=== PATIENT | female | born 1980 | race Caucasian/White ===

== ENCOUNTER 2021-11-18 16:55 | Outpatient (REF) | payer OTHER, SELFPAY ==
--- NOTE | ~2021-11-18 | XR_ITS ---
EXAMINATION: XR CHEST CLINICAL INFORMATION: Wheezing COMPARISON: None TECHNIQUE: 2 views of the chest were obtained. FINDINGS: No significant abnormality is noted involving the heart, lungs, mediastinum, bony thorax or soft tissues. XR/XR chest 2V IMPRESSION: Unremarkable examination.
== END 2021-11-18 16:56 | disposition home or self-care (01) ==
LOC: HO.XRAY 16:55
PROVIDERS: PCP Internal Medicine; Visit Provider Nurse Practitioner Family
DX: R06.2 Wheezing (principal)
CPT/HCPCS: 71046

== ENCOUNTER 2022-02-16 09:01 | Emergency (ER) | payer OTHER, SELFPAY ==
--- NOTE | ~2022-02-16 | XR_ITS ---
EXAMINATION: XR CHEST CLINICAL INFORMATION: Cough. COMPARISON: 11/18/2021 chest radiographs. TECHNIQUE: 2 views of the chest were obtained. FINDINGS: No significant abnormality is noted involving the heart, lungs, mediastinum, bony thorax or soft tissues. XR/XR chest 2V IMPRESSION: No acute cardiopulmonary process.
[2022-02-16 09:07] VITALS: BP 137/72; PULSE 88; RESP 18; TEMP 36.5; O2SAT 98; BMI 42.0
--- NOTE | 2022-02-16 09:11 | ED.URI ---
HPI - URI/Sore Throat General Chief Complaint: Upper Respiratory Symptoms Stated Complaint: diff breathing cough Time Seen by Provider: 02/16/22 09:10 Source: patient Mode of arrival: ambulatory Limitations: no limitations History of Present Illness HPI Narrative: 41 yo female no sig PMH here with c/o 1 week of cough and feeling like she cannot take a deep breath - not on OCPs, has completed zpak from urgent care, on prednisone from telehealth as of wednesday, using INH albuterol for the first time. Came today thinking nebulizer without hx of asthma might stop her cough because it is intolerable. 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) Associated symptoms: cough and chest pain (due to cough) Treatments prior to arrival: other (zpak, prednisone, albuterol INH) Related Data Home Medications Medication Instructions Recorded Confirmed albuterol sulfate 90 mcg/actuation 1 - 2 puff PO Q4-6H PRN 11/18/21 11/18/21 aerosol inhaler (ProAir HFA) prednisone 20 mg tablet 40 mg PO DAILY 11/18/21 11/18/21 Previous Rx's Medication Instructions Recorded escitalopram oxalate 10 mg tablet 10 mg PO DAILY #90 tabs 09/11/21 doxycycline monohydrate 100 mg 100 mg PO BID 7 days #14 caps 11/18/21 capsule azithromycin 250 mg tablet 250 mg PO DIRECTED 5 days #6 02/12/22 tabs hydrocodone-homatropine 5 mg-1.5 5 ml PO Q6H PRN cough #160 mL 02/16/22 mg/5 mL oral syrup Allergies Allergy/AdvReac Type Severity Reaction Status Date / Time No Known Allergies Allergy Verified 11/18/21 16:29 [No Known Allergies*] Review of Systems Review of Systems: Constitutional : No Fever, No Chills ENT/Mouth : No Hoarseness, No sore throat, No Rhinorrhea Eyes: No Redness, No Discharge, No Vision Changes Cardiovascular : No Chest Pain, positive SOB, positive Dyspnea on Exertion, No Edema Respiratory : positive Cough, No Sputum, positive Wheezing, Gastrointestinal : No Nausea, No Vomiting, No Diarrhea, No abdominal Pain Genitourinary : No Dysuria, No Hematuria Musculoskeletal : No joint pain, No Myalgias Skin : No rash Neuro : No Weakness, No Numbness, No Headache Psych : No anxiety, depression Heme/Lymph: No Bruising, No Bleeding Endocrine : No Polyuria, No Polydipsia All other systems reviewed and are negative PMFSH Past Medical History Attestation statement: The following information was validated with the patient. 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 Oriented X3. No acute distress. Eyes: Pupils equal, round and reactive to light. ENT: Pharynx normal. Neck: Normal inspection. Neck supple. CVS: Normal heart rate and rhythm. Pulses normal. Respiratory: No respiratory distress. Breath sounds normal. intermittent dry cough Abdomen: Soft and -. Skin: Skin warm and dry. Normal skin color. Normal skin turgor. Extremities: No lower extremity edema. No calf ttp Neuro: Oriented X 3. No motor deficit. No sensory deficit. Course Course Course Narrative: negative swabs and CXR MDM - URI/Sore Throat MDM Narrative Medical decision making narrative: 41 yo female with recent URI no testing done but started on zpak and prednisone (still on prednisone) here with c/o persistent cough - at this time not toxic, not hypoxic afebrile will obtain CXR and swabs, INH ordered to make sure patient is using it correctly. She is not a smoker. She was told that she may have a cough of upwards to 2 to 4 weeks post infection. Lab Data Labs: Lab Results 02/16/22 Range/Units 09:17 Influenza Type A (PCR) NEGATIVE (Negative) Influenza Type B (PCR) NEGATIVE (Negative) RSV RNA Qual (PCR) NEGATIVE (Negative) SARS-CoV-2 RNA (RT-PCR) NEGATIVE (Negative) Discharge Plan Discharge Clinical Impression: Bronchitis Patient Disposition: Home, Self-Care Instructions: Acute Bronchitis (ED) Additional Instructions: return to ED for any worsening symptoms or concerns negative for COVID/flu/RSV by PCR Chest xray negative for pneumonia continue prednisone Prescriptions: New hydrocodone-homatropine 5-1.5 mg/5 mL syrup 5 ml PO Q6H PRN (Reason: cough) Qty: 160 0RF Rx Instructions: Partial Fill upon patient request. No Action escitalopram oxalate 10 mg tablet 10 mg PO DAILY Qty: 90 3RF azithromycin 250 mg tablet 250 mg PO DIRECTED 5 Days Qty: 6 0RF Rx Instructions: Take 2 tabs the first day, then take 1 tab for the next 4 days albuterol sulfate [ProAir HFA] 90 mcg/actuation HFA aerosol inhaler 1 - 2 puff PO Q4-6H PRN prednisone 20 mg tablet 40 mg PO DAILY doxycycline monohydrate 100 mg capsule 100 mg PO BID 7 Days Qty: 14 0RF Referrals: Sarah Sood MD [Primary Care Provider] - 3 days (if not better) Stand Alone Forms: Work/School Release
[2022-02-16] MEDS: Albuterol Sulfate 90 MCG 8 GM INHALER 2 PUFF INHALE (09:28)
[2022-02-16 09:31] VITALS: PULSE 77; RESP 20; O2SAT 97
[2022-02-16 10:13] LABS: Influenza A PCR NEGATIVE (Negative); Influenza B PCR NEGATIVE (Negative); Resp Syncy Virus RNA Qual PCR NEGATIVE (Negative); SARS COV2 PCR INHOUSE NEGATIVE (Negative)
== END 2022-02-16 10:24 | disposition home or self-care (01) ==
PROVIDERS: Emergency Provider Emergency Medicine; PCP Internal Medicine
DX: J40 Bronchitis, not specified as acute or chronic (principal); R06.02 Shortness of breath; R05.9 Cough, unspecified; Z20.822 Contact with and (suspected) exposure to COVID-19; Z79.899 Other long term (current) drug therapy
CPT/HCPCS: 0241U; 71046; 94640; 99284

== ENCOUNTER 2022-11-17 06:03 | Outpatient (REF) | payer OTHER, SELFPAY ==
[2022-11-17 06:12] LABS: MANUAL DIFF FLAG NO
[2022-11-17 07:35] LABS: Basophils Percent Auto 0.6 % (0-2); Eosinophils Absolute Auto 0.2 X10*3/uL (0.0-0.4); Hematocrit 38.4 % (37.0-47.0); Hemoglobin 12.3 g/dl (12.0-16.0); Imm Gran Abs Auto 0.01 X10*3/uL (0.00-0.03); Imm Gran Pct Auto 0.2 % (0.0-0.4); Lymphocytes Absolute Auto 1.9 X10*3/uL (1.2-4.9); Lymphocytes Percent Auto 38.1 % (20-40); Mean Corpuscular Volume 90.6 fL (80.0-98.0); Mean Platelet Volume 10.5 fL (9.4-12.3); Monocytes Absolute Auto 0.5 X10*3/uL (0.1-1.2); Monocytes Percent Auto 9.7 % (2-11); Neutrophils Absolute Auto 2.4 x10*3/uL (2.0-8.3); Neutrophils Percent Auto 48.4 % (45-73); Platelet Count 280 X10*3/uL (160-400); Red Blood Count 4.24 X10*6/uL (4.20-5.50); Red Cell Distribution Width 12.9 % (11.0-16.0)
[2022-11-17 08:23] LABS: Alanine Aminotransferase 13 U/L (0-31); Albumin Level 3.8 g/dL (3.5-5.0); Alkaline Phosphatase 59 U/L (39-117); Anion Gap 11 (12-20); Aspartate Amino Transferase 15 U/L (5-31); Bilirubin Total 0.3 mg/dL (0.0-1.0); Blood Urea Nitrogen 15 mg/dL (9-16); Calcium 8.8 mg/dL (8.4-10.2); Carbon Dioxide 27 mmol/L (22-29); Chloride 109 mmol/L (96-108); Estimated Glomerular Filt Rate > 60; Glucose Fasting 101 mg/dL (60-99); Potassium 4.7 mmol/L (3.3-5.1); Sodium 142 mmol/L (135-145); Total Protein 6.2 g/dL (6.5-8.0)
[2022-11-17 08:54] LABS: Folate 10.3 ng/mL (> or = 4.0); Thyroid Stimulating Hormone 0.72 uIU/mL (0.32-4.0); Vitamin B12 407 pg/mL (200-900); Vitamin D 25-OH Total 20.8 ng/mL (>30)
== END 2022-11-17 06:04 | disposition home or self-care (01) ==
LOC: HO.LAB 06:03
PROVIDERS: PCP Internal Medicine; Visit Provider Internal Medicine
DX: R53.83 Other fatigue (principal); E53.8 Deficiency of other specified B group vitamins; E55.9 Vitamin D deficiency, unspecified; D64.9 Anemia, unspecified
CPT/HCPCS: 36415; 80053; 82306; 82607; 82746; 84443; 85025

== ENCOUNTER → 2022-11-24 15:44 | Outpatient (BNVA) | payer OTHER, SELFPAY | PROVIDERS: PCP Internal Medicine; Visit Provider Physician Assistant Surgical | DX: Z13.89 Encounter for screening for other disorder (principal) ==

== ENCOUNTER → 2022-12-02 07:58 | Outpatient (BNVA) | payer OTHER, SELFPAY | PROVIDERS: PCP Internal Medicine; Visit Provider Surgery | DX: Z13.89 Encounter for screening for other disorder (principal) ==

== ENCOUNTER 2022-12-04 08:39 | Outpatient (REF) | payer OTHER, SELFPAY ==
--- NOTE | ~2022-12-04 | XR_ITS ---
EXAMINATION: XR CHEST CLINICAL INFORMATION: E66.01. Bariatric service evaluation. COMPARISON: Chest radiographs 02/16/2022, 11/18/2021 TECHNIQUE: 2 views of the chest were obtained. FINDINGS: The lungs are clear and there is no airspace consolidation or groundglass opacity or effusion. Heart size normal. Vascularity normal. The hilar and mediastinal contours are normal. No acute bony abnormality. XR/XR chest 2V IMPRESSION: Unremarkable examination.
--- NOTE | 2022-12-04 08:44 | ECG_ITS ---
Test Reason : OBESITY Blood Pressure : / mmHG Vent. Rate : 064 BPM Atrial Rate : 064 BPM P-R Int : 164 ms QRS Dur : 080 ms QT Int : 426 ms P-R-T Axes : 033 044 039 degrees QTc Int : 439 ms Normal sinus rhythm Normal ECG No previous ECGs available Referred By: Faisal Ferreira Electronically Signed By:Freedom Aleman
[2022-12-04 09:03] LABS: MANUAL DIFF FLAG NO
[2022-12-04 09:25] LABS: Basophils Percent Auto 0.4 % (0-2); Eosinophils Absolute Auto 0.1 X10*3/uL (0.0-0.4); Hematocrit 39.7 % (37.0-47.0); Hemoglobin 13.4 g/dl (12.0-16.0); Imm Gran Abs Auto 0.01 X10*3/uL (0.00-0.03); Imm Gran Pct Auto 0.2 % (0.0-0.4); Lymphocytes Absolute Auto 1.2 X10*3/uL (1.2-4.9); Lymphocytes Percent Auto 24.1 % (20-40); Mean Corpuscular HGB Conc 33.8 g/dl (31.0-35.0); Mean Corpuscular Hemoglobin 29.5 pg (27.0-33.0); Mean Corpuscular Volume 87.4 fL (80.0-98.0); Mean Platelet Volume 10.2 fL (9.4-12.3); Monocytes Absolute Auto 0.5 X10*3/uL (0.1-1.2); Monocytes Percent Auto 9.1 % (2-11); Neutrophils Absolute Auto 3.3 x10*3/uL (2.0-8.3); Neutrophils Percent Auto 65.2 % (45-73); Platelet Count 265 X10*3/uL (160-400); Red Blood Count 4.54 X10*6/uL (4.20-5.50); Red Cell Distribution Width 13.2 % (11.0-16.0); White Blood Count 5.1 X10*3/uL (4.8-10.8)
[2022-12-04 09:27] LABS: Estimated Average Glucose 103 mg/dL; Hemoglobin A1c % 5.2 %
[2022-12-04 09:46] LABS: Alanine Aminotransferase 19 U/L (0-31); Albumin Level 4.2 g/dL (3.5-5.0); Alkaline Phosphatase 62 U/L (39-117); Anion Gap 11 (12-20); Aspartate Amino Transferase 20 U/L (5-31); Bilirubin Total 0.6 mg/dL (0.0-1.0); Blood Urea Nitrogen 17 mg/dL (9-16); C Reactive Protein 0.86 mg/dL (< or = 0.50); Calcium 9.1 mg/dL (8.4-10.2); Carbon Dioxide 26 mmol/L (22-29); Chloride 106 mmol/L (96-108); Cholesterol 173 mg/dL; Estimated Glomerular Filt Rate > 60; Glucose Random 94 mg/dL (60-115); HDL Cholesterol 48 mg/dL; Iron 72 mcg/dL (30-160); LDL Cholesterol Calculated 112 mg/dl; Percent Iron Saturation 21 % (15-50); Potassium 4.2 mmol/L (3.3-5.1); Sodium 139 mmol/L (135-145); Total Iron Binding Capacity 348 mcg/dL (228-428); Total Protein 6.7 g/dL (6.5-8.0); Triglycerides 66 mg/dL; Unsaturated Iron Binding 276 ug/dL
[2022-12-04 10:21] LABS: Ferritin 27 ng/mL (10-250); Folate 19.5 ng/mL (> or = 4.0); Insulin 5 uU/mL (2-29); TSH reflex Free T4 0.59 uIU/mL (0.32-4.0); Vitamin B12 527 pg/mL (200-900); Vitamin D 25-OH Total 27.1 ng/mL (>30)
[2022-12-07 21:49] LABS: Calcium (PTHI) 9.4 mg/dL (8.6-10.2); PTHI 54 pg/mL (16-77)
[2022-12-08 15:39] LABS: Zinc 78 mcg/dL (60-130)
[2022-12-10 23:44] LABS: Vitamin A 25 mcg/dL (38-98)
[2022-12-14 06:33] LABS: Vitamin B1 11 nmol/L (8-30)
== END 2022-12-04 08:40 | disposition home or self-care (01) ==
LOC: HO.LAB 08:39
PROVIDERS: PCP Internal Medicine; Visit Provider Surgery
DX: E66.01 Morbid (severe) obesity due to excess calories (principal); Z20.2 Contact with and (suspected) exposure to infections with a predominantly sexual mode of transmission
CPT/HCPCS: 36415; 71046; 80053; 80061; 82306; 82607; 82728; 82746; 83036; 83525; 83540; 83970; 84425; 84443; 84590; 84630; 85025; 86140; 93005

== ENCOUNTER → 2022-12-21 15:24 | Outpatient (BNVA) | payer OTHER, SELFPAY | PROVIDERS: PCP Internal Medicine; Visit Provider Physician Assistant Surgical | DX: Z13.89 Encounter for screening for other disorder (principal) ==

== ENCOUNTER 2022-12-21 19:43 | Outpatient (REF) | payer OTHER, SELFPAY ==
[2022-12-23 13:50] LABS: H Pylori Breath Test Negative (Negative)
== END 2022-12-21 19:44 | disposition home or self-care (01) ==
LOC: HO.LNP 19:43
PROVIDERS: Visit Provider Surgery
DX: E66.01 Morbid (severe) obesity due to excess calories (principal); Z11.0 Encounter for screening for intestinal infectious diseases
CPT/HCPCS: 83013

== ENCOUNTER → 2022-12-22 15:34 | Outpatient (BNVA) | payer OTHER, SELFPAY | PROVIDERS: PCP Internal Medicine; Visit Provider Dietitian, Registered | DX: E66.01 Morbid (severe) obesity due to excess calories (principal); Z71.3 Dietary counseling and surveillance | CPT/HCPCS: 97802 ==

== ENCOUNTER → 2023-01-01 08:01 | Outpatient (BNVA) | payer OTHER, SELFPAY | PROVIDERS: PCP Internal Medicine; Visit Provider Surgery ==

== ENCOUNTER 2023-02-01 07:54 | Outpatient (REF) | payer OTHER, SELFPAY ==
--- NOTE | ~2023-02-01 | US_ITS ---
EXAMINATION: US COMPLETE ABDOMEN WITH LIVER ELASTOGRAPHY CLINICAL INFORMATION: Morbid obesity. COMPARISON: None available. TECHNIQUE: Real-time imaging of the abdominal viscera. Noninvasive ultrasound liver fibrosis assessment is performed using Yazan ElastPQ point quantification shear wave elastography (2D-SWE) with a C5-2 MHz transducer. Multiple elastography samples are obtained. FINDINGS: PANCREAS: Limited. The visualized pancreatic head and body are normal in appearance. The remainder of the pancreas is obscured from visualization by the overlying bowel gas. ABDOMINAL AORTA: The proximal, middle, and distal aortic segments are normal in caliber. INFERIOR VENA CAVA: Visualized portions are normal. LIVER: Normal. The liver demonstrates normal size, contour and echogenicity. No focal lesion or intrahepatic biliary duct dilatation. The right lobe measures 13.7 cm in length. The left lobe measures 8.0 cm in length. Portal flow is towards the liver (hepatopetal). Shear wave liver elastography median stiffness is 1.54 m/s (reference: normal median stiffness is 1.3 m/s or less). IQR/median stiffness to assess sampling precision is 0.24 (reference: good quality data set is IQR/median stiffness of 0.15 or less). GALLBLADDER: Multiple gallstones are seen with a alao-bufq-faaejb complex. COMMON BILE DUCT: Normal in caliber measuring 0.4 cm in diameter. RIGHT KIDNEY: Normal. No hydronephrosis. No renal calculi or focal parenchymal lesions. The kidney measures 10.6 cm in maximum dimension. LEFT KIDNEY: Normal. No hydronephrosis. No renal calculi or focal parenchymal lesions. The kidney measures 10.5 cm in maximum dimension. SPLEEN: Normal. The spleen measures 9.7 cm in maximum dimension. FREE FLUID: None. US/US abdomen comp w elastography IMPRESSION: 1. There is generalized increase in hepatic echotexture, consistent with fatty infiltration or hepatocellular disease. Please correlate clinically. No focal hepatic mass or intrahepatic biliary dilatation is seen. 2. Liver elastography: Although measurements appear to rule out compensated advanced chronic liver disease, there is statistical variability of the sampling which decreases accuracy. 3. There is marked cholelithiasis. 4. Technically limited ultrasound examination of the pancreas. REFERENCE: Society of Radiologists in Ultrasound Liver Stiffness Thresholds (2020): LIVER STIFFNESS THRESHOLDS: *Liver Stiffness equal or less than 1.3 m/s: High probability of being normal. *Liver Stiffness less than 1.7 m/s: In the absence of other known clinical signs, rules out compensated advanced chronic liver disease. *Liver Stiffness 1.7-2.1 m/s: Suggestive of compensated advanced chronic liver disease but need further test for confirmation. *Liver Stiffness over 2.1 m/s: Rules in compensated advanced chronic liver disease. *Liver Stiffness over 2.4 m/s: Suggestive of clinically significant portal hypertension. QUALITY OF DATA SET: *IQR/Median value equal or less than 0.15 implies a quality data set. *IQR/Median value over 0.15 implies a poor quality data set. SIGNIFICANT CHANGE FROM PRIOR EXAM: Significant change if liver stiffness measurement is 10% or greater from prior exam. OTHER CONSIDERATIONS: The stage of liver fibrosis may be overestimated in the setting of acute hepatitis, liver inflammation, elevated liver function tests, hepatic vascular congestion, obstructive cholestasis, non-fasting state, and infiltrative diseases such as amyloidosis and lymphoma. In some patients with NAFLD, the liver stiffness thresholds for compensated advanced chronic liver disease may be lower. In causes other than viral hepatitis and NAFLD, liver stiffness thresholds are not well established.
--- NOTE | ~2023-02-01 | FL_ITS ---
EXAMINATION: XR FLUOROSCOPY UPPER GI WITH AIR CLINICAL INFORMATION: Obesity COMPARISON: None available. TECHNIQUE: Upper GI was performed using thin and thick barium and effervescent granules FINDINGS: Esophageal motility is normal. No hernia or reflux. Stomach and duodenum are normal. No fold thickening, mass, ulcer or stricture is seen. FLUOROSCOPY TIME: 0.3 minutes DOSE AREA PRODUCT: 3.7 conti per centimeter squared. Total dose 13 mg7. 19 saved fluoroscopic images. FL/FL upper GI w air IMPRESSION: Unremarkable examination.
== END 2023-02-01 07:55 | disposition home or self-care (01) ==
LOC: HO.US 07:54
PROVIDERS: PCP Internal Medicine; Visit Provider Surgery
DX: E66.01 Morbid (severe) obesity due to excess calories (principal); K21.9 Gastro-esophageal reflux disease without esophagitis; Z71.3 Dietary counseling and surveillance; Z68.39 Body mass index [BMI] 39.0-39.9, adult; Z79.899 Other long term (current) drug therapy
CPT/HCPCS: 74246; 76705; 76981

== ENCOUNTER 2023-02-04 09:54 | Outpatient (REF) | payer OTHER, SELFPAY | END 2023-02-04 09:55 | disposition home or self-care (01) | LOC: HO.LAB 09:54 | PROVIDERS: Visit Provider Physician Assistant | DX: J02.9 Acute pharyngitis, unspecified (principal) | CPT/HCPCS: 87070 ==

== ENCOUNTER → 2023-02-10 13:26 | Outpatient (BNVA) | payer OTHER, SELFPAY | PROVIDERS: PCP Internal Medicine; Visit Provider Dietitian, Registered | DX: E66.9 Obesity, unspecified (principal); Z71.3 Dietary counseling and surveillance; Z68.39 Body mass index [BMI] 39.0-39.9, adult | CPT/HCPCS: 97803 ==

== ENCOUNTER → 2023-02-19 13:08 | Outpatient (BNVA) | payer OTHER, SELFPAY | PROVIDERS: PCP Internal Medicine; Visit Provider Surgery ==

== ENCOUNTER 2023-03-04 07:29 | Day surgery (SDC) | payer OTHER, SELFPAY ==
[2023-02-26 13:46] VITALS: BMI 39.7
--- NOTE | 2023-03-03 14:06 | MHC.SHP ---
Pre-Procedural Eval Section A Date of Service: 03/03/23 The patient is an INPATIENT: No The History & Physical has been completed within 30 days and I have reviewed it.: Yes Section B Chief Complaint: Calculus of gallbladder with chronic cholecystitis Allergies: Allergies Allergy/AdvReac Type Severity Reaction Status Date / Time No Known Allergies Allergy Verified 02/19/23 13:18 [No Known Allergies*] Plan I have reviewed the history and physical and performed a pertinent physical examination on my patient. No changes have occurred unless specified. Time Spent With Patient Time: Total time managing care of this patient today ____ minutes.
[2023-03-04] VITALS (21 sets, daily range): BP systolic 116–143; BP diastolic 57–82; PULSE 61–90; RESP 12–22; TEMP 36.2–36.4; O2SAT 95–98; BMI 40.1
--- NOTE | 2023-03-04 07:08 | W.PM.OPN ---
Operative Note Operative Note Date of Service: 03/04/23 Narrative: Preop diagnosis: [Chronic calculous cholecystitis] Postop diagnosis: [same] Procedure: [lap janette] Surgeon: Nithin Bruno MD Assist: [Emelia Lin RN] Anesthesia: [GET, local: Marcaine, 0.5% with epi] Estimated blood loss: [75cc] Specimen: [gallbladder & contents] Intraoperative findings: [Critical view of safety was demonstrated: Cystic duct was 6-7 mm and identified on the junction of the gallbladder; cystic artery was 3 mm; a posterior branch of the cystic artery in the liver bed was identified and required surgical clip ligation] Indications: [The patient is a 42-year-old woman enrolled in the surgical weight loss program who is noted to have an abdominal ultrasound demonstrating an extensive gallstone burden. The patient reported some vague GI complaints, has no family history of gallbladder disease but notes concern regarding postoperative cholecystitis after surgical weight loss. After reviewing and discussing options with the patient she wanted to proceed with a laparoscopic cholecystectomy. I reviewed the option of continued observation and 2nd opinion which was declined. I also reviewed the inherent risks to surgery which include, but are not limited to: Bleeding that could require another operation or blood transfusion, the need for open surgery, the unlikely but possible issue of bile leak that could require an ERCP, the risk of retained common duct stones that could require an ERCP, the risk of common bile duct injury which would require transfer to a larger institution for another operation. Patient seemed to understand her options, declined a weight control engineer or 2nd opinion and wants to proceed. Instructions regarding diet and activity reviewed and apparently understood. The patient is advised to avoid rich fatty foods postoperatively to avoid GI distress/diarrhea and advised to not lift more than 20 lb for medical reasons to minimize the risk of hernia postoperatively. I recommended that she discuss these restrictions for 6 weeks with her employer and that she is not disabled during this time frame but can perform light duty. The patient's questions seemed to be satisfactorily answered.] Procedure: [The patient was identified in preoperative holding and again in the operating room and placed supine on the table. An appropriate time-out was performed and preemptive local used at all trocar insertion sites. I began at the patient's supraumbilical midline and placed a Veress needle through a transverse supraumbilical incision. An appropriate drop test was performed. The needle was connected to high flow and opening pressures were 6 mmHg. A pneumoperitoneum of 15 mmHg was then obtained using carbon dioxide. The Veress needle was then removed and I accessed the patient's abdomen through the supraumbilical midline incision using a 5 mm Optiview trocar and 30 degree/5 mm laparoscopic without incident. Next a a 5 mm epigastric and two 5 mm right subcostal ports were placed with preemptive analgesia under direct laparoscopic vision without incident and the supraumbilical trocar upsized to a 12 mm trocar under direct laparoscopic vision. The gallbladder was clearly identified and grasped by its fundus. It was retracted cranially and anteriorly and dissection began in the lateral cystic triangle. The cystic duct was identified at its junction on the gallbladder and dissection carried medially, then circumferentially using the [place] dissector and hook. The cystic artery was then carefully identified and circumferentially dissected. Once dissection of both structures was complete and the critical view of safety demonstrated, the 5 mm epigastric trocar was upsized to a 12 mm to accommodate a 10 mm clip hybrid corn breeder and the duct and artery were double clipped proximally and once distally and sharply divided. Electrocautery was used to remove the gallbladder from its fossa on the liver. A posterior branch of the cystic artery was identified and required ligation due to bleeding. The structure was approximately 3 mm in size. Liver bed was inspected for hemostasis and the clips were noted to be on the respective structures. The gallbladder was placed in an Endo-Catch bag and delivered through the umbilicus under direct laparoscopic vision. The abdomen was again inspected with the laparoscoped and a abdomen deflated to assess for hemostasis. The patient was returned to neutral position, the abdomen deflated and the fascia of the supraumbilical incision closed with interrupted Vicryl sutures. Skin was closed with 4-0 Monocryl subcuticular sutures. Mastisol and Steri-Strips were applied followed by Band-Aids. The patient tolerated the procedure well and was extubated recovered in stable condition. All sponge instrument counts were correct x2. At the patient's request I called her motherVenecia at [phone] and a message left since the call defaulted to voice message.]
--- NOTE | 2023-03-04 09:36 | HO.ANESPROP2 ---
HPI - Anesthesia Eval Consult details Narrative: 42 F for ramonita savage PMFSH Active Problems Active Problems: All Active Problems (Updated 02/26/23 @ 13:44 by Leslie Savage RN) Fatigue (Acute) Morbid obesity (Acute) Mild recurrent major depression (Acute) Hypovitaminosis D (Acute) Vitamin A deficiency (Acute) Other specified eating disorder (Acute) Traumatic hematoma of right upper arm (Acute) Obesity (Acute) BMI 39.0-39.9,adult (Acute) Chronic calculous cholecystitis (Acute) PONV (postoperative nausea and vomiting) (Acute) DJD (degenerative joint disease) (Acute) Past Medical History Medical History (Updated 02/26/23 @ 13:44 by Leslie Savage RN) DJD (degenerative joint disease) Wheezing Functional capacity: independent ambulation Family History Family History Mother No problems noted. Father No problems noted. Brother No problems noted. Son No problems noted. Daughter No problems noted. 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 Current occupational exposures/hazards: No Cognitive needs: No Hearing needs: No Vision needs: No Meds Allergies Allergy/AdvReac Type Severity Reaction Status Date / Time No Known Allergies Allergy Verified 02/19/23 13:18 [No Known Allergies*] Active Medications: Current Medications Lactated Ringer's (Lr) 1,000 mls @ 100 mls/hr IVCONT .Q10H GERMAINE Last Admin: 03/04/23 08:15 Dose: 100 mls/hr Home Medications Medication Instructions Recorded Confirmed Last Taken Type WOMEN MULTIVITAMIN 1 tab PO DAILY 11/24/22 02/26/23 Unknown History cetirizine 10 mg capsule (Zyrtec) 10 mg PO DAILY PRN Allergy Symptoms 11/24/22 02/26/23 Unknown History melatonin 10 mg capsule 10 mg PO BEDTIME PRN Insomnia 11/24/22 02/26/23 Unknown History Exam Exam Date and Time: March 04, 2023 0936 Height,Weight and Vital Signs: Height 5 ft 2 in Weight 99.337 kg Last Vital Signs Temp 97.4 F 03/04/23 07:45 Pulse 69 03/04/23 07:45 Resp 18 03/04/23 07:45 BP 116/72 03/04/23 07:45 Pulse Ox 98 03/04/23 07:45 O2 Del Method Room Air 03/04/23 07:45 Airway Mallampati Class: IV Loose/Missing/Broken Teeth: Yes Assessment and Plan Assessment Anesthesia Assessment: Anesthesia Plan Discussed and Chart Reviewed Final Anesthetic Review Family History of Problems with Anesthesia: No History of Problems with Anesthesia: Yes (ponv ) NPO: Yes ASA Class: III Final Preanesthetic Review: Meds/Allgs Chart Reviewed, Consent Obtained/Reviewed and Anes Risks/Benef Reviewed Patient Risk: Intermediate Procedure Risk: Intermediate Anesthetic Plan Anesthetic Plan: GA Disposition: Standard PACU
== END 2023-03-04 15:08 | disposition home or self-care (01) ==
LOC: HO.SSS 07:29
PROVIDERS: PCP Internal Medicine; Visit Provider Surgery
PROC: 0FT44ZZ Resection of Gallbladder, Percutaneous Endoscopic Approach (ICD-10-PCS; CPT 47562; principal; 2023-03-04 09:10)
DX: K80.10 Calculus of gallbladder with chronic cholecystitis without obstruction (principal)
CPT/HCPCS: 47562; 88304; J0690; J1100; J1170; J2250; J2370; J2371; J2405; J3010

== ENCOUNTER 2023-03-12 11:31 | Outpatient (AMB) | payer OTHER, SELFPAY ==
--- NOTE | 2023-03-12 11:34 | A.OFFVIS_ITS ---
Intake Vital Signs 03/12/23 11:39 Weight 219 lb BP 128/74 Blood Pressure Location Rt brachial Position Sitting Pulse 87 Intake Visit Reasons: S/P lap janette Intake Note: This patient presents for a post-op assessment status post laparoscopic cholecystectomy. Patient c/o; one of the incision is red and protruding, denies oozing. Automation Tech Required: No Internal Medicine Physician Assistant: Internal Medicine Physician Assistant offered & declined Accompanied by: Self / Same As Patient Allergies No Known Allergies [No Known Allergies*] Allergy (Verified 03/12/23 11:39) Medication List - Last Reconciled 03/12/23 by Nithin Bruno MD blood pressure monitor As directed cetirizine (Zyrtec) 10 mg PO DAILY PRN cholecalciferol (vitamin D3) 25 mcg PO DAILY 90 days escitalopram oxalate 10 mg PO DAILY melatonin 10 mg PO BEDTIME PRN oxycodone 5 mg PO Q4H PRN phentermine 37.5 mg PO DAILY vitamin A palmitate 10,000 units orally one per day; [WOMEN MULTIVITAMIN 1 tab PO DAILY] HPI HPI Comments History of Present Illness Details The patient returns for follow-up after laparoscopic cholecystectomy for chronic calculous cholecystitis on 03/04/2023. Patient notes that she is doing well, denies any fevers, chills, nausea or vomiting. She has no significant pain in her bowels are moving normally. She notes that she is anxious to proceed with laparoscopic sleeve gastrectomy in the next month or so. [facility] Medical History (Updated 02/26/23 @ 13:44 by Leslie Savage RN) DJD (degenerative joint disease) Wheezing Surgical History (Updated 03/12/23 @ 12:28 by Nithin Bruno MD) History of 2 sections History of laparoscopic cholecystectomy History of tubal ligation Hx of vein stripping Family History Mother No problems noted. Father No problems noted. Brother No problems noted. Son No problems noted. Daughter No problems noted. 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 Her abdomen is soft and nontender Results Reviewed Results Reviewed: Pathology from 03/04/2023 confirmed chronic calculous cholecystitis which was discussed with the patient; no malignancy was noted Assessment & Plan Assessment & Plan (1) History of laparoscopic cholecystectomy: Comment: Code(s): Z90.49 - Acquired absence of other specified parts of digestive tract (2) Chronic calculous cholecystitis: Code(s): K80.10 - Calculus of gallbladder with chronic cholecystitis without obstruction (3) BMI 39.0-39.9,adult: Code(s): Z68.39 - Body mass index [BMI] 39.0-39.9, adult Plan Instructions regarding diet and activity reviewed and apparently understood. The patient will refrain from lifting more than 20 lb or core strengthening exercises that could increase her risk for incisional hernia. She will continue to follow up with the bariatric team regarding her upcoming sleeve gastrectomy and they will direct her diet. 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 She will see me again if needed. Coding Level of Care Code Global (50298) Diagnoses History of laparoscopic cholecystectomy Z90.49 Chronic calculous cholecystitis K80.10 BMI 39.0-39.9,adult Z68.39
[2023-03-12 11:39] VITALS: BP 128/74; PULSE 87
== END 2023-03-12 12:55 | disposition home or self-care (01) ==
PROVIDERS: PCP Internal Medicine; Visit Provider Surgery
DX: Z90.49 Acquired absence of other specified parts of digestive tract (principal); K80.10 Calculus of gallbladder with chronic cholecystitis without obstruction; Z68.39 Body mass index [BMI] 39.0-39.9, adult
CPT/HCPCS: 99024

== ENCOUNTER → 2023-03-12 11:31 | Outpatient (BNVA) | payer OTHER, SELFPAY | PROVIDERS: PCP Internal Medicine; Visit Provider Surgery ==

== ENCOUNTER 2023-03-17 14:30 | Outpatient (AMB) | payer OTHER, SELFPAY ==
--- NOTE | 2023-03-17 13:14 | MHC.OFFVISWM ---
Intake VS Expanded 03/17/23 14:30 Height 5 ft 2 in Weight 210 lb BMI 38.4 Intake Visit Reasons: VIDEO F/U [facility] Continuing Education Specialist Required: No Allergies No Known Allergies [No Known Allergies*] Allergy (Verified 03/12/23 11:39) Medication List - Last Reconciled 03/17/23 by ROXANA Hadley blood pressure monitor As directed cetirizine (Zyrtec) 10 mg PO DAILY PRN cholecalciferol (vitamin D3) 25 mcg PO DAILY 90 days escitalopram oxalate 10 mg PO DAILY melatonin 10 mg PO BEDTIME PRN phentermine 37.5 mg PO DAILY vitamin A palmitate 10,000 units orally one per day; [WOMEN MULTIVITAMIN 1 tab PO DAILY] HPI HPI Comments History of Present Illness Details 42 yo female returns to [facility] clinic for pre-op planning initial weight on 12/02/22 was 233.6 with a BMI of 42.7 weight today 210 with a BMI of 38.4 weight loss 23.6 pounds or 10.1 % TBWL. Tolerating Phentermine without symptoms. States that she is off for summer vacation and home all day. meal plan: 2 Orgain shakes (1/2 scoop each in almond milk), 2 Zone Perfect protein bars and one meal (8 forks of protein and 8 forks of salad or vegetables) exercise plan: treadmill and pelaton at home. bike 2 x per week, 200 calories per session, treadmill, 30 minutes 2 x per week [facility] Medical History DJD (degenerative joint disease) Wheezing Surgical History History of 2 sections History of laparoscopic cholecystectomy History of tubal ligation Hx of vein stripping Family History Mother No problems noted. Father No problems noted. Brother No problems noted. Son No problems noted. Daughter No problems noted. 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 3-4 bike and increase from beginner ride to fat burn or interval training, 1 treadmill, 1 yoga/pelaton home videos continue meal plan will discuss with Dr Perez surgical scheduling Telehealth Telehealth Location of provider rendering services: practice address Location of patient: address on file Patient Identification confirmed using: Name, : Yes Telehealth method: video Patient verbally consented to treatment: Yes Patient verbally consented to billing insurance company: Yes Patient informed of any privacy concerns related to visit: Yes Minutes spent on Phone/Video with Pt.: 18 Coding Level of Care Code Tele Est Pt Level 3 (08134) Diagnoses Obesity E66.9 Time Spent (min) 24
[2023-03-17 14:30] VITALS: BMI 38.4
== END 2023-03-17 15:11 | disposition home or self-care (01) ==
LOC: HO.HBS 15:07
PROVIDERS: PCP Internal Medicine; Visit Provider Physician Assistant Surgical
DX: E66.9 Obesity, unspecified (principal); Z68.38 Body mass index [BMI] 38.0-38.9, adult
CPT/HCPCS: 99213

== ENCOUNTER → 2023-03-17 14:30 | Outpatient (BNVA) | payer OTHER, SELFPAY | PROVIDERS: PCP Internal Medicine; Visit Provider Physician Assistant Surgical ==

== ENCOUNTER 2023-03-19 15:13 | Outpatient (AMB) | payer OTHER, SELFPAY ==
--- NOTE | 2023-03-19 14:07 | A.OFFVIS_ITS ---
Intake Intake Visit Reasons: VIDEO Pre Op LSG 04/06/23 Life Sciences Instructor Required: No Allergies No Known Allergies [No Known Allergies*] Allergy (Verified 03/12/23 11:39) Medication List - Last Reconciled 03/19/23 by ROXANA Hadley blood pressure monitor As directed cetirizine (Zyrtec) 10 mg PO DAILY PRN cholecalciferol (vitamin D3) 25 mcg PO DAILY 90 days escitalopram oxalate 10 mg PO DAILY melatonin 10 mg PO BEDTIME PRN ondansetron 4 mg PO Q6H PRN pantoprazole 40 mg PO DAILY 90 days phentermine 37.5 mg PO DAILY polyethylene glycol 3350 (Miralax) 17 grams PO DAILY sucralfate 10 mL PO BID vitamin A palmitate 10,000 units orally one per day; [WOMEN MULTIVITAMIN 1 tab PO DAILY] HPI HPI Comments History of Present Illness Details This is a pre op appointment for scheduled LSG with Dr Ferreira on 04/06/23 meal plan: 2 Orgain shakes (1/2 scoop each in almond milk), 2 Zone Perfect protein bars and one meal (8 forks of protein and 8 forks of salad or vegetables) exercise plan: treadmill and pelaton at home.? bike 2 x per week, 200 calories per session, treadmill, 30 minutes? 2 x per week? weight loss: initial weight on 12/02/22 was 233.6 with a BMI of 42.7 weight today 210 with a BMI of 38.4 weight loss 23.6 pounds or 10.1 % TBWL. awakens at: 8 am, bed at : 10 pm [facility] Medical History DJD (degenerative joint disease) Wheezing Surgical History History of 2 sections History of laparoscopic cholecystectomy History of tubal ligation Hx of vein stripping Family History Mother No problems noted. Father No problems noted. Brother No problems noted. Son No problems noted. Daughter No problems noted. 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 Plan for lap sleeve gastrectomy including upper GI endoscopy . If diaphragmatic or ventral hernias are present at time of surgery, these will be repaired laparoscopically as well. Risks and complications were discussed in detail including possible conversion to an open procedure, anastomotic leak, bleeding requiring transfusion, small bowel obstruction, , DVT and pulmonary embolism, cardiac, or pulmonary complications, as fdc complications such as anastomotic ulcer, insufficient weight loss and vitamin deficiencies. I emphasized the importance of close follow-up, adherence to instructions and good communication. So far she has proven to be an excellent communicator and very compliant with all our directions accomplishing a great weight loss. I believe that she is an excellent candidate and she is ready. 2. Preop prescriptions were provided and explained the purpose of each one. Need to be purchased preop. Start Pantoprazole now as you get it from the pharmacy, 1 pill per day. Sucralfate and Zofran are for after surgery. 3. Bowel prep: please do 7 packets ?of Miralax mixing each one with an 8oz glass of water on 04/04/23 and the same amount on 04/05/23 4. Needs to purchase 1oz medicine cups . 5. Needs to purchase Children's liquid Tylenol for postop pain control. 6. Stop all the vitamins on 04/03/23. Avoid aspirin, motrin, Advil, Aleve, Ibupro fen, Naproxyn from now until surgery. Tylenol is OK. Stop Phentermine 04/04/23 if you have not stopped it already. 7. Purchase the Celebrate 4:1 protein shakes from the hospital's gift shop. 8. Will do basic preop blood work-up on 03/29/23 fasting for 12 hours and is scheduled to see the Anesthesiologist prior to the day of surgery. 9. You must do the COVID test at the hospital at PAT department the day before surgery on 04/05/23 10. Importance of adherence to postop follow-up and recommendations was underscored and she understands that. 11. Stop food and bars as of 03/23/23 and continue with 5 Orgain shakes (2 scoops in 8oz almond milk) at 8am-10am, (1 scoop in 8 oz unsweetened almond milk for the next 4 shakes) at 11am-1pm, 2pm-4pm, 5pm-7pm and one more at 8pm-10pm 12. No soups, broths or V8 13. Please take at the day of surgery the following medications:?escitalopram it you take it in the morning. 14. Be sure to continue to send your weight measurements to Dr Ferreira weekly, and the most important weight measurement to send him is the day of surgery. 15. The patient's?medical?history has been reviewed and they are considered low risk for post op DVT and therefore DVT prophylaxis is not considered necessary. Travel after surgery was reviewed. The patient has not disclosed any travel plans during the first 30 days after surgery and they have been advised that within the first 30 days after surgery any bus, plane, train or car travel over 2 hours in duration is contraindicated due to the possibility of developing blood clots from immobility. Any travel, needs to include periods of ambulation of 10 minutes in duration every 2 hours.? Patient was instructed to discuss any plans for travel during this period with their bariatric surgeon.? Orders: Orders Type and Screen Today E66.9 - Obesity, unspecified, Z01.818 - Encounter for other preprocedural examination Vitamin B12 Today E66.9 - Obesity, unspecified, Z01.818 - Encounter for other preprocedural examination Comprehensive Met. Panel Today E66.9 - Obesity, unspecified, Z01.818 - Encounter for other preprocedural examination C Reactive Protein Today E66.9 - Obesity, unspecified, Z01.818 - Encounter for other preprocedural examination Ferritin Today E66.9 - Obesity, unspecified, Z01.818 - Encounter for other preprocedural examination Hemoglobin A1c Today E66.9 - Obesity, unspecified, Z01.818 - Encounter for other preprocedural examination IRON PROFILE Today E66.9 - Obesity, unspecified, Z01.818 - Encounter for other preprocedural examination Lipid Panel Today E66.9 - Obesity, unspecified, Z01.818 - Encounter for other preprocedural examination PTHI Today E66.9 - Obesity, unspecified, Z01.818 - Encounter for other preprocedural examination TSH reflex Free T4 Today E66.9 - Obesity, unspecified, Z01.818 - Encounter for other preprocedural examination Vitamin A Today E66.9 - Obesity, unspecified, Z01.818 - Encounter for other preprocedural examination Vitamin B1 Today E66.9 - Obesity, unspecified, Z01.818 - Encounter for other preprocedural examination Vitamin D 25-OH Total Today E66.9 - Obesity, unspecified, Z01.818 - Encounter for other preprocedural examination Zinc Today E66.9 - Obesity, unspecified, Z01.818 - Encounter for other preprocedural examination Prothrombin Time INR Today E66.9 - Obesity, unspecified, Z01.818 - Encounter for other preprocedural examination Partial Thromboplastin Time Today E66.9 - Obesity, unspecified, Z01.818 - Encounter for other preprocedural examination Complete Blood Count Auto Diff Today E66.9 - Obesity, unspecified, Z01.818 - Encounter for other preprocedural examination Medications: New pantoprazole 40 mg PO DAILY 90 days 90 tabs 0RF sucralfate 10 mL PO BID 420 mL 3RF ondansetron 4 mg PO Q6H PRN 10 tabs 0RF nausea and vomiting polyethylene glycol 3350 (Miralax) dissolved in 8 oz of fluids each. 7 on 04/04/23 and 7 on 04/05/23 17 grams PO DAILY 14 ea 0RF Telehealth Telehealth Location of provider rendering services: practice address Location of patient: other Patient Identification confirmed using: Name, : Yes Telehealth method: video Patient verbally consented to treatment: Yes Patient verbally consented to billing insurance company: Yes Patient informed of any privacy concerns related to visit: Yes Minutes spent on Phone/Video with Pt.: 10 Coding Level of Care Code Tele Est Pt Level 4 (95435) Diagnoses Obesity E66.9 Time Spent (min) 40
== END 2023-03-19 15:14 | disposition home or self-care (01) ==
LOC: HO.HBS 15:13
PROVIDERS: PCP Internal Medicine; Visit Provider Physician Assistant Surgical
DX: E66.9 Obesity, unspecified (principal); Z68.38 Body mass index [BMI] 38.0-38.9, adult
CPT/HCPCS: 99499

== ENCOUNTER → 2023-03-19 15:13 | Outpatient (BNVA) | payer OTHER, SELFPAY | PROVIDERS: PCP Internal Medicine; Visit Provider Physician Assistant Surgical | DX: E66.9 Obesity, unspecified (principal); Z01.818 Encounter for other preprocedural examination ==

== ENCOUNTER 2023-03-24 14:54 | Outpatient (AMB) | payer OTHER, SELFPAY ==
[2023-03-24 14:58] VITALS: BP 110/78; BMI 39.1
--- NOTE | 2023-03-24 14:58 | A.OFFPC_ITS ---
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: No Accompanied by: Self / Same As Patient Allergies No Known Allergies [No Known Allergies*] Allergy (Verified 03/24/23 15:12) Medication List - Last Reconciled 03/24/23 by Sarah Dent MD blood pressure monitor As directed cetirizine (Zyrtec) 10 mg PO DAILY PRN cholecalciferol (vitamin D3) 25 mcg PO DAILY 90 days escitalopram oxalate 10 mg PO DAILY melatonin 10 mg PO BEDTIME PRN ondansetron 4 mg PO Q6H PRN pantoprazole 40 mg PO DAILY 90 days polyethylene glycol 3350 (Miralax) 17 grams PO DAILY sucralfate 10 mL PO BID vitamin A palmitate 10,000 units orally one per day; [WOMEN MULTIVITAMIN 1 tab PO DAILY] Tobacco use date assessed: 11/19/22 Dental Screening Dental Screen Date: 03/24/23 Did you have a dental visit in the last 12 months?: No Did you have a dental problem in the last 6 months where you did not have access to dental care?: No Was dental information given to patient?: Patient has dentist HPI HPI Comments History of Present Illness Details This is a 42-year-old female that comes for her physical exam. She is scheduled for bariatric surgery 04/07/2023. Will schedule a mamsmogram after. Will also call OBGYN for a Pap smear after recovery from surgery. [facility] Medical History DJD (degenerative joint disease) Wheezing Surgical History History of 2 sections History of laparoscopic cholecystectomy History of tubal ligation Hx of vein stripping Family History (Updated 03/24/23 @ 15:19 by Sarah Dent MD) Mother Heart disease Father Substance use disorder Brother No problems noted. Son No problems noted. Daughter No problems noted. 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 Handy Ro, Chelsy Hernadez, David Foley and colleagues, with an educational isaac from [employer]. Review of Systems Const All systems reviewed & are unremarkable except as noted in HPI and below Eyes Reports no additional complaints, Denies change in vision and Denies other visual disturbances Card Denies chest pain at rest, Denies chest pain with activity, Denies edema, Denies irregular heart rhythm, Denies claudication, Denies dyspnea, Denies dyspnea on exertion, Denies orthopnea, Denies paroxysmal nocturnal dyspnea and Denies slow heart rate Resp Denies cough, Denies dyspnea and Denies dyspnea on exertion GI Denies abdominal pain, Denies change in bowel habits, Denies excessive flatus, Denies nausea and Denies vomiting Denies urinary incontinence, Denies urinary hesitancy and Denies urinary urgency Musc Denies abnormal gait, Denies atrophy, Denies deformity and Denies limited range of motion Skin/Breast Denies bleeding lesions, Denies changing lesions and Denies rash Neuro Denies abnormal gait and Denies lack of coordination Physical exam (Primary Care) Vital Signs: Last Vital Signs BP 110/78 03/24/23 14:58 BMI result Body Mass Index 39.1 Tobacco/Smoking Status: Tobacco use Status Tobacco use date assessed 11/19/22 03/24/23 15:06 Patient Tobacco Use Status Never used Tobacco 03/24/23 15:20 e-Cigarette/Vaping Use Never Used 03/24/23 15:20 Thrive Assessment: Date of Thrive Assessment Date Thrive assessed 11/19/22 03/24/23 15:06 Const Orientation/consciousness: patient oriented x3 HENMT Head: Yes normal to inspection, Yes normocephalic and Yes atraumatic Ears: external ears normal Eyes General: appearance normal, both eyes and all related structures Eyelids: Yes eyelids normal Conjunctivae: conjunctivae normal Neck Neck: Yes normal visual inspection and Yes supple Resp Effort & Inspection: normal respiratory effort Auscultation: clear to auscultation bilaterally Cardio Jugular venous distension: no JVD Rate: regular rate Rhythm: regular rhythm Heart sounds: S1 normal heart sound present and S2 normal heart sound present GI Inspection: Yes normal to inspection Palpation (GI): Soft to palpation and nontender Auscultation: normal bowel sounds Skin General skin exam: no rashes or lesions noted Neuro General: patient oriented x3 and no focal motor deficits Extrem General: Yes full ROM Psych Appearance: grossly normal Assessment and Plan Assessment & Plan (1) Physical exam: Code(s): Z00.00 - Encounter for general adult medical examination without abnormal findings Plan: Repeat in a year. Coding Level of Care Code Est Pt Prev Care 40-64y(59835) Diagnoses Physical exam Z00.00 Time Spent (min) 32
== END 2023-03-24 15:27 | disposition home or self-care (01) ==
PROVIDERS: PCP Internal Medicine; Visit Provider Internal Medicine
DX: Z00.00 Encounter for general adult medical examination without abnormal findings (principal)
CPT/HCPCS: 99396

== ENCOUNTER 2023-03-29 09:27 | Outpatient (REF) | payer OTHER, SELFPAY ==
[2023-03-29 10:06] LABS: MANUAL DIFF FLAG NO
[2023-03-29 10:19] LABS: Basophils Percent Auto 0.5 % (0-2); Eosinophils Absolute Auto 0.1 X10*3/uL (0.0-0.4); Eosinophils Percent Auto 1.2 % (0-4); Hematocrit 46.5 % (37.0-47.0); Hemoglobin 15.6 g/dl (12.0-16.0); Imm Gran Abs Auto 0.01 X10*3/uL (0.00-0.03); Imm Gran Pct Auto 0.2 % (0.0-0.4); Lymphocytes Absolute Auto 1.5 X10*3/uL (1.2-4.9); Lymphocytes Percent Auto 23.4 % (20-40); Mean Corpuscular HGB Conc 33.5 g/dl (31.0-35.0); Mean Corpuscular Hemoglobin 30.2 pg (27.0-33.0); Mean Corpuscular Volume 89.9 fL (80.0-98.0); Mean Platelet Volume 10.1 fL (9.4-12.3); Monocytes Absolute Auto 0.6 X10*3/uL (0.1-1.2); Monocytes Percent Auto 8.9 % (2-11); Neutrophils Absolute Auto 4.2 x10*3/uL (2.0-8.3); Neutrophils Percent Auto 65.8 % (45-73); Platelet Count 358 X10*3/uL (160-400); Red Blood Count 5.17 X10*6/uL (4.20-5.50); Red Cell Distribution Width 12.2 % (11.0-16.0); White Blood Count 6.4 X10*3/uL (4.8-10.8)
[2023-03-29 10:27] LABS: Prothrombin Time 12.7 SEC (11.1-13.3)
[2023-03-29 10:30] LABS: Partial Thromboplastin Time 37.2 SEC (26.0-36.4)
[2023-03-29 10:57] LABS: Alanine Aminotransferase 20 U/L (0-31); Albumin Level 4.6 g/dL (3.5-5.0); Alkaline Phosphatase 73 U/L (39-117); Anion Gap 19 (12-20); Aspartate Amino Transferase 20 U/L (5-31); Bilirubin Total 0.7 mg/dL (0.0-1.0); Blood Urea Nitrogen 11 mg/dL (9-16); C Reactive Protein 1.08 mg/dL (< or = 0.50); Carbon Dioxide 21 mmol/L (22-29); Chloride 103 mmol/L (96-108); Cholesterol 213 mg/dL; Estimated Glomerular Filt Rate > 60; Glucose Random 98 mg/dL (60-115); HDL Cholesterol 47 mg/dL; Iron 163 mcg/dL (30-160); LDL Cholesterol Calculated 142 mg/dl; Percent Iron Saturation 44 % (15-50); Potassium 4.1 mmol/L (3.3-5.1); Sodium 139 mmol/L (135-145); Total Iron Binding Capacity 373 mcg/dL (228-428); Total Protein 7.9 g/dL (6.5-8.0); Triglycerides 123 mg/dL; Unsaturated Iron Binding 210 ug/dL
[2023-03-29 11:08] LABS: Estimated Average Glucose 85 mg/dL; Hemoglobin A1c % 4.6 %
[2023-03-29 11:10] LABS: Vitamin B12 1646 pg/mL (200-900)
[2023-03-29 11:16] LABS: Ferritin 143 ng/mL (10-250); TSH reflex Free T4 0.61 uIU/mL (0.32-4.0); Vitamin D 25-OH Total 41.5 ng/mL (>30)
[2023-03-30 19:04] LABS: Calcium (PTHI) 9.6 mg/dL (8.6-10.2); PTHI 62 pg/mL (16-77)
[2023-04-01 01:58] LABS: Zinc 102 mcg/dL (60-130)
[2023-04-02 02:49] LABS: Vitamin A 40 mcg/dL (38-98)
[2023-04-02 12:19] LABS: Vitamin B1 8 nmol/L (8-30)
== END 2023-03-29 09:28 | disposition home or self-care (01) ==
LOC: HO.LAB 09:27
PROVIDERS: PCP Internal Medicine; Visit Provider Physician Assistant Surgical
DX: Z01.818 Encounter for other preprocedural examination (principal); E66.9 Obesity, unspecified
CPT/HCPCS: 36415; 80053; 80061; 82306; 82607; 82728; 83036; 83540; 83970; 84425; 84443; 84590; 84630; 85025; 85610; 85730; 86140; 86850; 86900; 86901

== ENCOUNTER 2023-04-06 07:53 | Day surgery (SDC) | payer OTHER, SELFPAY ==
[2023-03-25 11:11] VITALS: BMI 38.0
--- NOTE | 2023-03-31 08:05 | P.HPSUR_ITS ---
Pre-Procedural Eval Section A Date of Service: 03/31/23 The patient is an INPATIENT: No The History & Physical has been completed within 30 days and I have reviewed it.: Yes Section B Chief Complaint: Obesity, unspecified Relevant Family History (Specify if Yes): No Relevant Social History: None Present Medications: None Medical History: No relevant PMH History of Previous Operations: No relevant previous surgery Allergies: Allergies Allergy/AdvReac Type Severity Reaction Status Date / Time No Known Allergies Allergy Verified 03/24/23 15:12 [No Known Allergies*] Review of Systems Sugical H&P ROS: Negative: Constitution, Cardiovascular, Respiratory, Neurological, Psychiatric, Hem-Onc, Allergic/Immunologic, Gastrointestinal, Genitourinary, Musculoskeletal, Integumentary, Endocrine and Eyes/Ears/N ose/Throat Exam Surgical H&P Exam: Normal: HEENT, Normal: Heart, Normal: Lungs, Normal: Extremities, Normal: Abdomen, Normal: Skin and Normal: Neurological Plan Diagnosis/Plan: Unchanged I have reviewed the history and physical and performed a pertinent physical examination on my patient. No changes have occurred unless specified. Time Spent With Patient Time: Total time managing care of this patient today ____ minutes.
--- NOTE | 2023-04-05 09:04 | HO.ANESPROP2 ---
Documented by User: Ciera Prado NP 04/05/23 09:06 HPI - Anesthesia Eval Consult details Narrative: 42yo F for Gastrectomy Sleeve,EGD,poss diaphragmatic hernia,poss ventral hernia,poss open, PMFSH Active Problems Active Problems: All Active Problems (Updated 03/24/23 @ 15:12 by Sarah Dent MD) Physical exam (Acute) Pre-op evaluation (Acute) History of laparoscopic cholecystectomy (Acute) Fatigue (Acute) Morbid obesity (Acute) Mild recurrent major depression (Acute) Hypovitaminosis D (Acute) Vitamin A deficiency (Acute) Other specified eating disorder (Acute) Traumatic hematoma of right upper arm (Acute) Obesity (Acute) BMI 39.0-39.9,adult (Acute) Chronic calculous cholecystitis (Acute) PONV (postoperative nausea and vomiting) (Acute) DJD (degenerative joint disease) (Acute) Past Medical History Medical History Depression DJD (degenerative joint disease) Wheezing Family History Family History Mother Heart disease Father Substance use disorder Brother No problems noted. Son No problems noted. Daughter No problems noted. Maternal Grandmother Melanoma Family history of problems with anesthesia: No Surgical History Surgical History History of 2 sections History of laparoscopic cholecystectomy History of tubal ligation Hx of vein stripping History of Problems with Anesthesia: Yes (ponv ) Social History Social History Housing: House Are you a primary animal care service worker to a significant other at home: No Do you presently have visiting nurse or other home services: No Alcohol intake: former Patient Tobacco Use Status: Never used Tobacco e-Cigarette/Vaping Use: Never Used Second Hand Smoke Exposure: No Use of substances other than those prescribed or required for medical reasons: No Have you been hit, kicked, punched, or otherwise hurt by someone within the past year? 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 Current occupational exposures/hazards: No Cognitive needs: No Hearing needs: No Vision needs: No Meds Allergies Allergy/AdvReac Type Severity Reaction Status Date / Time No Known Allergies Allergy Verified 03/24/23 15:12 [No Known Allergies*] Home Medications Medication Instructions Recorded Confirmed Last Taken Type WOMEN MULTIVITAMIN 1 tab PO DAILY 11/24/22 03/25/23 Unknown History cetirizine 10 mg capsule (Zyrtec) 10 mg PO DAILY PRN Allergy Symptoms 11/24/22 03/25/23 Unknown History melatonin 10 mg capsule 10 mg PO BEDTIME PRN Insomnia 11/24/22 03/25/23 Unknown History vitamin A palmitate 3,000 mcg 10,000 unit PO DAILY 03/25/23 03/25/23 Unknown History (10,000 unit) capsule Exam Exam Date and Time: April 05, 2023 0904 Height,Weight and Vital Signs: Height 5 ft 2 in Weight 94.347 kg Pertinent Lab Results Pertinent Lab Results: Laboratory Tests 03/29/23 10:00 Blood Type O Positive Antibody Screen NEGATIVE Laboratory Tests 03/29/23 03/29/23 10:04 10:04 WBC 6.4 Hgb 15.6 Hct 46.5 Plt Count 358 D Sodium 139 Potassium 4.1 Chloride 103 Carbon Dioxide 21 L BUN 11 Creatinine 0.74 Narrative Narrative: EKG Vent. Rate : 064 BPM ? ? Atrial Rate : 064 BPM ?? P-R Int : 164 ms? QRS Dur : 080 ms ? ? QT Int : 426 ms ? ? ? P-R-T Axes : 033 044 039 degrees ?? QTc Int : 439 ms ? Normal sinus rhythm Normal ECG No previous ECGs available Assessment and Plan Assessment Anesthesia Assessment: Chart Reviewed Final Anesthetic Review Family History of Problems with Anesthesia: No History of Problems with Anesthesia: Yes (ponv ) Documented by User: Melissa Delgadillo MD 04/06/23 11:15 [facility] Active Problems Active Problems: All Active Problems (Updated 04/06/23 @ 09:05 by Melissa Delgadillo MD) Physical exam (Acute) Pre-op evaluation (Acute) History of laparoscopic cholecystectomy (Acute) Fatigue (Acute) Morbid obesity (Acute) Mild recurrent major depression (Acute) Hypovitaminosis D (Acute) Vitamin A deficiency (Acute) Other specified eating disorder (Acute) Traumatic hematoma of right upper arm (Acute) Obesity (Acute) BMI 39.0-39.9,adult (Acute) Chronic calculous cholecystitis (Acute) PONV (postoperative nausea and vomiting) (Acute) DJD (degenerative joint disease) (Acute) Past Medical History Medical History Depression DJD (degenerative joint disease) Wheezing Family History Family History Mother Heart disease Father Substance use disorder Brother No problems noted. Son No problems noted. Daughter No problems noted. Maternal Grandmother Melanoma Surgical History Surgical History History of 2 sections History of laparoscopic cholecystectomy History of tubal ligation Hx of vein stripping Social History Social History Housing: House Are you a primary animal care service worker to a significant other at home: No Do you presently have visiting nurse or other home services: No Alcohol intake: former Patient Tobacco Use Status: Never used Tobacco e-Cigarette/Vaping Use: Never Used Second Hand Smoke Exposure: No Use of substances other than those prescribed or required for medical reasons: No Have you been hit, kicked, punched, or otherwise hurt by someone within the past year? 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 Current occupational exposures/hazards: No Cognitive needs: No Hearing needs: No Vision needs: No Meds Allergies Allergy/AdvReac Type Severity Reaction Status Date / Time No Known Allergies Allergy Verified 03/24/23 15:12 [No Known Allergies*] Home Medications Medication Instructions Recorded Confirmed Last Taken Type WOMEN MULTIVITAMIN 1 tab PO DAILY 11/24/22 03/25/23 Unknown History cetirizine 10 mg capsule (Zyrtec) 10 mg PO DAILY PRN Allergy Symptoms 11/24/22 03/25/23 Unknown History melatonin 10 mg capsule 10 mg PO BEDTIME PRN Insomnia 11/24/22 03/25/23 Unknown History vitamin A palmitate 3,000 mcg 10,000 unit PO DAILY 03/25/23 03/25/23 Unknown History (10,000 unit) capsule Exam Height,Weight and Vital Signs: Height 5 ft 2 in Weight 94.347 kg Vital Signs Temp Pulse Resp BP Pulse Ox O2 Del Method 04/06/23 08:33 98.0 F 82 16 107/63 96 Room Air Pertinent Lab Results Pertinent Lab Results: Laboratory Tests 03/29/23 10:00 Blood Type O Positive Antibody Screen NEGATIVE Laboratory Tests 03/29/23 03/29/23 10:04 10:04 WBC 6.4 Hgb 15.6 Hct 46.5 Plt Count 358 D Sodium 139 Potassium 4.1 Chloride 103 Carbon Dioxide 21 L BUN 11 Creatinine 0.74 Laboratory Results - last 24 hr 04/05/23 13:30 COVID-19 ([facility]) Negative COVID-19 Clin Com See Note Airway Mallampati Class: I TM Dist: >3cm Neck ROM: Full Loose/Missing/Broken Teeth: No (Denies broken,loose, missing teeth) Heart: RRR Lungs: CTAB Assessment and Plan Assessment Anesthesia Assessment: Anesthesia Plan Discussed Final Anesthetic Review NPO: Yes ASA Class: III Final Preanesthetic Review: No Changes in Pt Med Stat, Meds/Allgs Chart Reviewed, Consent Obtained/Reviewed and Anes Risks/Benef Reviewed Patient Risk: Intermediate Procedure Risk: Intermediate Assessment/Block/Sedation in SS: Assess/Block/Sedation-SS Anesthetic Plan Anesthetic Plan: GA Disposition: Standard PACU and Inp. Admit - Standard Bed
[2023-04-05 13:57] LABS: COVID-19 Test Negative (Negative); IDNOW Serial# BCCEAD1C
[2023-04-06] VITALS (12 sets, daily range): BP systolic 106–127; BP diastolic 58–79; PULSE 77–96; RESP 12–18; TEMP 36.1–37.3; O2SAT 96–100; BMI 38.1
[2023-04-06] MEDS: Aprepitant 32 MG/4.4 ML VIAL IVPUSH (08:46)
[2023-04-06] MEDS: Lactated Ringers 1,000 ML 999 ML IV (08:49)
--- NOTE | 2023-04-06 09:49 | PM.PNGS ---
Subjective Subjective Date of Service: 04/07/23 Interval history: Feels well. Mild incisional pain. She is tolerating phase 1 bariatric diet Physical Exam Vital Signs: Vital Signs: Last Vital Signs Temp 98.0 F 04/06/23 08:33 Pulse 82 04/06/23 08:33 Resp 16 04/06/23 08:33 BP 107/63 04/06/23 08:33 Pulse Ox 96 04/06/23 08:33 O2 Del Method Room Air 04/06/23 08:33 BMI result Body Mass Index 38.0 GI: Inspection: Yes normal to inspection, Yes incision (clean, dry and intact) and Yes obesity Palpation (GI): Soft to palpation Extrem: Right lower extremity: normal to inspection (no calf tenderness) Left lower extremity: normal to inspection (no calf tenderness) Objective Data Active Medications Lactated Ringer's (Lr) 1,000 mls @ 100 mls/hr IVCONT .Q10H GERMAINE Lactated Ringer's (Lr) 1,000 mls @ 999 mls/hr IV .Q1H1M GERMAINE Stop: 04/06/23 10:15 Last Admin: 04/06/23 08:49 Dose: 999 mls/hr Documented By: TORITO Labs 04/07/23 05:21 04/07/23 05:21 Labs: Laboratory Results - last 24 hr 04/05/23 13:30 COVID-19 ([facility]) Negative COVID-19 Clin Com See Note Procedures Date of Service Date of Service: 04/07/23 Progress Note: A&P Assessment and plan (1) Obesity: Status: Acute Assessment and Plan: s/p laparoscopic sleeve gastrectomy, lysis of adhesions and gastropexy Doing well Will check am labs and if OK the patient will be discharged home (2) BMI 37.0-37.9, adult: Status: Acute (3) DJD (degenerative joint disease): Status: Acute (4) Depression: Status: Acute (5) Liver fibrosis: Status: Acute (6) Intra-abdominal adhesions: Status: Acute (7) S/P laparoscopic sleeve gastrectomy: Status: Acute Time Spent With Patient Time: Total time managing care of this patient today ____ minutes. Quality Stroke Does the patient have a stroke diagnosis?: No VTE Prior VTE?: No VTE Risk Level:: Medical - moderate - high VTE Device Contraindication: N/A - Device Ordered VTE Drug Contraindication: Treatment Not Indicated
--- NOTE | 2023-04-06 09:51 | PM.OP ---
Brief Operative Note Date of Service: 04/06/23 Pre-op diagnosis: Severe obesity with comorbidities (see below) Post-op diagnosis: same (& abdominal adhesions) Procedure: INITIAL PATIENT BMI ON PRESENTATION AT OUR OFFICE: 42.7 kg/m2 LAST BMI BEFORE SURGERY: 37.5 kg/m2 COMORBIDITIES: depression, DJD, liver fibrosis ?The patient presented to the Weight Management Program with significant obesity that was negatively impacting the patient's comorbidities as listed above.? The program is a phased program with a special focus on preoperative medical weight management to promote substantial weight loss and prepare the patients for the second phase of the program: bariatric surgery. The patient participated in an intensive weekly lifestyle ?intervention and exercise program during which the patient ?has lost between the initial office visit and the last preoperative visit 28.5 lbs, or 12.2% of initial actual body weight. It was deemed appropriate for the patient to now have bariatric surgery. In light of the current Covid-19 pandemic and the well documented strong association of obesity and increased risk of worse outcomes if infected with Covid-19 (REFERENCES:https://pubmed.ncbi.nlm.nih.gov/66537025/,?https://pubmed.ncbi.nlm.nih.gov/03136014/), any delay in undergoing bariatric surgery may lead to the patient's worsening health condition and increased?risk of more severe Covid-19 disease if infected. In addition a recent?study from [facility] published in [facility] on 08/25/2021 ([email or web address]:/[email or web address]) found that, among patients with obesity, substantial weight loss achieved with surgery was associated with improved outcomes of COVID-19 infection. The findings suggest that obesity can be a modifiable risk factor for the severity of COVID-19 infection. In addition, the patient met the BMI-criteria for bariatric surgery based on the BMI on initial presentation. The patient should not be penalized for achieving such weight loss because ?it is not sustainable long-term without surgical intervention and it was achieved in preparation for bariatric surgery ?under my direction and based on my published research ([email or web address]).pdf and?https://www.soard.org/article/[email or web address](40)70128-X/pdf) ?that a 10% preoperative weight loss improves long-term weight loss after surgery and reduces perioperative complications.? Insurance carriers such as [facility] have endorsed my recommendations ?and have included in their policies criteria to include a 10% preoperative weight loss requirement. PROCEDURE: Esophago-gastroscopy, laparoscopic lysis of adhesions, laparoscopic sleeve gastrectomy and laparoscopic gastropexy INDICATIONS: This is a 42 year-old female who was electively scheduled for laparoscopic, possibly open sleeve gastrectomy. The risks and complications of the procedure were discussed with the patient in advance, particularly the possibility of ; pulmonary embolism; staple line leak; bleeding; GERD; cardiac, pulmonary, or renal complications; as well as long-term problems such as insufficient weight loss, vitamin deficiency, strictures, or ulcers. The patient understood all the risks, and was in agreement to proceed with surgery. DESCRIPTION OF PROCEDURE: After informed consent was obtained from the patient, the patient was given preoperative antibiotics, and was transferred to the operating room. After successful induction of general anesthesia, pneumatic compression devices were placed on both lower extremities. An upper endoscopy was performed next. The oropharynx and esophagus appeared to be within normal limits. There was no diaphragmatic hernia present consistent with the findings of the preoperative upper GI. The stomach was entered. Then after all fluid and air were suctioned and the stomach was fully decompressed, the scope was withdrawn and secured in the mid esophagus. The patient was then prepped and draped in the usual sterile manner, and abdominal access was established at the right upper quadrant with the Ulysses technique. A 12 mm blunt port was inserted, and the abdomen was insufflated with CO2 to a pressure of 15 mmHg. Under direct visualization, additional ports were placed, specifically two 5 mm Versi-step ports to the left upper quadrant, and a 5 mm Versi-Step port to the right upper quadrant. 1% lidocaine plain was used to infiltrate all port sites as well as all fascia defects. There were adhesions in the abdomen from previous involving the liver bed and the anterior abdominal wall. Those were lysed completely with the ultrasonic device. Following that, the patient was placed in a steep reverse Trendelenburg position. An additional 5 mm port was placed to the right flank for the Mediflex retractor that was used to retract the left lobe of the liver. The gastro-esophageal fat pad was opened with the ultrasonic device (Thunderbeat, Olympus) and the anterior esophagus and hiatus were exposed. The angle of His was opened with the ultrasonic device the fundus of the stomach from any diaphragmatic and splenic attachments. I then opened the gastrocolic ligament between the transverse colon and the greater curvature of the stomach with the ultrasonic device to enter the lesser sac and facilitate the ligation of the short gastric vessels. I started at a mid-point along the greater curvature and using the Thunderbeat, all short gastric vessels were divided all the way to the angle of His until the left augustine was completely dissected at its entirety. I then divided the gastro-colic ligament distally to a distance of about 3-4 cm proximal to the pylorus. There were extensive congenital adhesions between the pancreas and posterior gastric wall. Those were lysed completely with the ultrasonic device. Adhesiolysis took approximately 45 min to complete. The stomach was then divided transversely with three Endo HAYDE-45 purple and three HAYDE-60 articulating purple loads using the [employer] stapler and loads. Every effort was made that the gastric sleeve had a tubular shape and an even caliber throughout. Once the sleeve resection was completed, the staple line of the gastric sleeve was reinforced with Hemoclips. The resected stomach was retrieved without difficulty from the Ulysses port. A gastropexy was then performed in order to prevent postoperative GERD and partial gastric volvulus. Several interrupted 2.0 Surgidac sutures were placed between the sleeve's staple line and the previously divided greater omentum and gastro-colic ligament using the Endo-Stitch device. ?An upper endoscopy was performed. There was no narrowing at the GE junction. The scope was easily advanced all the way to the pylorus which was clearly visualized. There was no narrowing anywhere and the sleeve's caliber was even throughout. The sleeve's staple line was inspected and there was no evidence of ischemia, bleeding or dehiscence. At that point the gastroscope was withdrawn from the patient?s mouth while we were decompressing the bowel and the stomach from any remaining air. I looked into the lesser sac to see how the sleeve was situating and it was situating well. There was no bleeding from the staple line, spleen, or short gastric vessels. The Mediflex retractor was removed, and the undersurface of the liver was inspected and there was no bleeding. The patient was placed in supine position. I closed the fascial defect of the 12 mm port site with a figure of eight #1 Polysorb suture. Then 30cc Ropivacaine plain with 10 mg of Dexamethasone were used to infiltrate the fascial closure as well as all skin incisions. A total of 5 ml Zynrelef was applied in the Ulysses wound. At this point, the abdomen was deflated, all ports were removed under direct vision, and no bleeding was noted from any of the port sites. The skin incisions were irrigated with saline and were closed with 4-0 absorbable monofilament sutures. Steri-Strips and OpSites were used to cover all incisions. The patient was extubated and was transferred in stable condition to the recovery room for further care. I was present and performed all rouse parts of the procedure. Ms. Aparicio was the first aid officer. There were no residents to assist with this case. Chris Ferreira MD, PhD, FACS Surgeon: Faisal Ferreira MD Anesthesia: GETA, local and other (TAP block and 5ml Zynrelef) Was an Outdoor Advertising Leasing Agent used for this Procedure?: No Outdoor Advertising Leasing Agent: Iveth Aparicio Estimated blood loss (mL): 10 IV fluids (mL): 3,000 Urine output (mL): 0 (No [place] to record output) Pathology: other (Stomach) Condition: stable Disposition: PACU
--- NOTE | 2023-04-06 12:34 | P.DS_ITS ---
DS: Providers Provider Date of Service: 04/07/23 Primary care physician: Sarah Dent MD DS: Diagnosis Discharge Diagnosis (1) Obesity: Status: Acute (2) BMI 37.0-37.9, adult: Status: Acute (3) DJD (degenerative joint disease): Status: Acute (4) Depression: Status: Acute (5) Liver fibrosis: Status: Acute DS: Summary Hospital Course Hospital Course: ADMITTING DIAGNOSIS: morbid obesity DISCHARGE DIAGNOSIS: same, s/p laparoscopic sleeve gastrectomy PAST SURGICAL HISTORY: lap janette, section x 2 PROCEDURE: upper endoscopy, laparoscopic sleeve gastrectomy DISCHARGE SUMMARY: History of Present Illness: The patient is a 42 year-old woman with a BMI of 42.7 kg/m2 and associated co- morbidities as described above. The patient had extensive work-up, lost 23.6 lbs preoperatively and was electively scheduled for laparoscopic, possible open sleeve gastrectomy and gastropexy. Risks and complications of the surgery were discussed with the patient in advance, particularly the possibility of , pulmonary embolism, anastomotic leak, bleeding, bowel injury, GERD, cardiac, renal or pulmonary complications. The patient understood all the risks and was in agreement with the surgical plan. Hospital Course: The patient underwent an uneventful laparoscopic sleeve gastrectomy with gastropexy on the day of admission. Postoperatively, the patient was transferred to the surgical floor. The patient received IV Acetaminophen and IV dilaudid for pain control. Patient was started on bariatric phase 1 diet POD #0. On postoperative day one, the patient was feeling well without nausea, vomiting, fevers, or tachycardia. The patient had some mild incisional pain and the abdomen was soft. On the morning of postoperative day one, the patient was continued on 1 ounce of water or ice every half hour. During the day, the patient did fairly well, having some incisional pain, but able to ambulate adequately and to tolerate liquids well. Since the patient is doing well, we decided that the patient was ready to be discharged. The patient was given instructions to follow-up with me next week and to call my office for any fever over 101, persistent abdominal pain, nausea, vomiting, GERD, symptoms of DVT such as calf tenderness, or leg swelling, or pulmonary embolism such as chest pain or shortness of breath. The patient was also instructed to drink 40-60 ounces of liquids per day using the 1-ounce cups. The patient had been given prescriptions for Tylenol for pain, Zofran prn for nausea, and pantoprazole and carafate previously. The patient was encouraged to ambulate and use the incentive spirometer. The patient was allowed to shower, but no baths, and encouraged to stay active at home. All of these instructions were given to the patient personally. All questions were answered and the patient understood all instructions, the instructions were also given to the patient in print. Time Spent with Patient Time attestation: Total time managing care of this patient today ____ minutes. Discharge coordination time: Less than 30 minutes Quality: Safe Use of Opioids Does Pt have an Active Cancer Diagnosis on the Problem List?: No Quality: Stroke Does the patient have a stroke diagnosis?: No Physical Exam Vital Signs: Vital Signs: Last Vital Signs Temp 98.0 F 04/06/23 08:33 Pulse 82 04/06/23 08:33 Resp 16 04/06/23 08:33 BP 107/63 04/06/23 08:33 Pulse Ox 96 04/06/23 08:33 O2 Del Method Room Air 04/06/23 08:33 BMI result Body Mass Index 38.0 DS: Data Data Completed and Pending Pending studies at discharge: Pending at discharge 04/06/23 12:04 Surgical [PTH] Routine Labs on day of discharge: Laboratory Results - last 24 hr 04/05/23 13:30 COVID-19 ([facility]) Negative COVID-19 Clin Com See Note Discharge Plan Discharge Patient Disposition: Home, Self-Care Referrals: Sarah Sodo MD [Primary Care Provider] - 1 Week Discharge Medications: No Action (DME) blood pressure monitor Kit See Rx Instructions .ROUTE .MEDSUPPLY Qty: 1 0RF Rx Instructions: As directed vitamin A palmitate 3,000 mcg (10,000 unit) capsule 10,000 unit PO DAILY cholecalciferol (vitamin D3) 25 mcg (1,000 unit) capsule 25 mcg PO DAILY 90 Days Qty: 90 1RF Zyrtec 10 mg capsule 10 mg PO DAILY PRN (Reason: Allergy Symptoms) melatonin 10 mg capsule 10 mg PO BEDTIME PRN (Reason: Insomnia) WOMEN MULTIVITAMIN 1 tab PO DAILY pantoprazole 40 mg tablet,delayed release (DR/EC) 40 mg PO DAILY 90 Days Qty: 90 0RF sucralfate 100 mg/mL suspension 10 ml PO BID Qty: 420 3RF ondansetron 4 mg tablet,disintegrating 4 mg PO Q6H PRN (Reason: nausea and vomiting) Qty: 10 0RF polyethylene glycol 3350 [Miralax] 17 gram powder in packet 17 g PO DAILY Qty: 14 0RF Rx Instructions: dissolved in 8 oz of fluids each. 7 on 04/04/23 and 7 on 04/05/23 Discharge Orders: Discharge Order (Routine); Ordered 04/07/23 Ordered By: Faisal Ferreira Activity on Discharge: No heavy lifting Activity Restrictions/Additional Instructions: No tub baths, sex or returning to work until discussed at first post op appointment. No exercise, alcohol, tobacco or illegal drug use. Continue to use incentive spirometer hourly while awake. Walk in home for 5- 10 minutes every 2 hours during the first week. Continue phase 1 diet today and start phase 2 diet tomorrow morning. Follow all instructions in the bariatric handbook and call with any questions. 1. Please call your doctor or come back to the emergency room should any new symptoms arise. 2. You will receive a courtesy call from [facility] 24-48 hours after discharge. 3. Activity: abstain from alcohol, practice limited stair climbing, no bending, no driving, no exercise, no illicit substances, no lifting, no sex, no tub bath, no work. 4. Diet: continue as discussed with bariatric team.. 5. Dressing Change/Wound Care: Do not change or remove surgical dressings unless they are wet or soiled. 6. Call your doctor if: - Your temperature exceeds 101.5 F - You experience excessive pain or swelling - You have an unexpected reaction to medication - You have excessive bleeding - You experience continued vomiting/nausea - Your incision begins to separate - Your incision shows signs of infection such as increased redness, swelling, excessive pain, heat, or drainage (light blood or clear fluid is normal) 7. General instructions: No lifting greater than 5 lbs for the next 4 weeks[address] driving within 24 hours of taking narcotic pain medications. If you do not move your bowels in the next 2 days, please take milk of magnesia over the counter. Please follow the post op diet and do not advance your diet until you are seen in the office in about 2 weeks. Please walk around your home every hour or two to prevent blood clots from forming in your legs. You do not need to wake from sleeping to walk. Please sleep in a bed or couch to prevent kinking at the hips and knees. Please take your incentive spirometer (your lung grain broker and market operator) home with you and use it for the next few days to prevent pneumonias. You may shower, no hot tubs, baths or swimming pools. Please call the office with any questions or concerns such as increasing abdominal pain, fever, chills, shortness of breath, chest pain, leg pain or swelling, or redness or drainage from your incisions. Do not hesitate to contact the office with any questions at . The patient's medical history has been reviewed and they are considered low risk for post op DVT and therefore DVT prophylaxis is not considered necessary. Travel after surgery was reviewed. The patient has not disclosed any travel plans during the first 30 days after surgery and they have been advised that within the first 30 days after surgery any bus, plane, train or car travel over 2 hours in duration is contraindicated due to the possibility of developing blood clots from immobility. Any travel, needs to include periods of ambulation of 10 minutes in duration every 2 hours. The patient was instructed to discuss any plans for travel during this period with their bariatric surgeon.
[2023-04-06 13:03] LABS: Hematocrit 35.8 % (37.0-47.0)
[2023-04-06] MEDS: Famotidine/PF 20 MG/2 ML VIAL IVPUSH ×2 (13:04→21:18)
[2023-04-06] MEDS: Lactated Ringers 1,000 ML 100 ML IVCONT ×2 (13:12→23:15)
[2023-04-06 13:20] LABS: Anion Gap 15 (12-20); Blood Urea Nitrogen 5 mg/dL (9-16); Calcium 8.6 mg/dL (8.4-10.2); Carbon Dioxide 19 mmol/L (22-29); Chloride 109 mmol/L (96-108); Creatinine Clr Calc Pharmacy 130.7; Estimated Glomerular Filt Rate > 60; Glucose Random 82 mg/dL (60-115); Potassium 4.4 mmol/L (3.3-5.1); Sodium 139 mmol/L (135-145)
--- NOTE | 2023-04-06 14:45 | PHA.MEDREC ---
Pharmacy Consult ? Medication Reconciliation Pharmacy has completed the medication reconciliation. Reviewed med rec done by nursing (Deidra).
[2023-04-06] MEDS: ceFAZolin Sodium/Dextrose,Iso 2 GM/50 ML PIGGYBACK IV (16:10)
[2023-04-06] MEDS: Acetaminophen 1,000 MG/100 ML PIGGYBACK 400 MG IV ×2 (17:07→23:15)
--- NOTE | 2023-04-06 23:44 | PC.NURSE ---
Pt states pain is consistently at a 4/10, describes it as gas pain or really bad hunger pain. Pt tolerating scheduled IV Tylenol with no breakthrough pain reported. Ambulating halls frequently, tolerating PO intake, good urine output. Abdominal surgical site dsgs CDI with abdominal binder in place. VSS. Plan of care ongoing.
[2023-04-07] MEDS: Melatonin 3 MG TABLET 9 MG PO (00:35)
[2023-04-07 03:29] VITALS: BP 118/66; PULSE 78; RESP 16; TEMP 36.4; O2SAT 96
[2023-04-07] MEDS: Acetaminophen 1,000 MG/100 ML PIGGYBACK 400 MG IV (05:27)
[2023-04-07 05:36] LABS: MANUAL DIFF FLAG NO
[2023-04-07 05:38] LABS: Basophils Percent Auto 0.1 % (0-2); Hematocrit 36.9 % (37.0-47.0); Hemoglobin 12.2 g/dl (12.0-16.0); Imm Gran Abs Auto 0.04 X10*3/uL (0.00-0.03); Imm Gran Pct Auto 0.4 % (0.0-0.4); Lymphocytes Absolute Auto 0.8 X10*3/uL (1.2-4.9); Lymphocytes Percent Auto 8.6 % (20-40); Mean Corpuscular HGB Conc 33.1 g/dl (31.0-35.0); Mean Corpuscular Hemoglobin 30.3 pg (27.0-33.0); Mean Corpuscular Volume 91.6 fL (80.0-98.0); Mean Platelet Volume 10.4 fL (9.4-12.3); Monocytes Absolute Auto 0.6 X10*3/uL (0.1-1.2); Monocytes Percent Auto 5.7 % (2-11); Neutrophils Absolute Auto 8.2 x10*3/uL (2.0-8.3); Neutrophils Percent Auto 85.2 % (45-73); Platelet Count 266 X10*3/uL (160-400); Red Blood Count 4.03 X10*6/uL (4.20-5.50); Red Cell Distribution Width 12.5 % (11.0-16.0); White Blood Count 9.6 X10*3/uL (4.8-10.8)
[2023-04-07 05:56] LABS: Anion Gap 17 (12-20); Blood Urea Nitrogen 4 mg/dL (9-16); Calcium 8.9 mg/dL (8.4-10.2); Carbon Dioxide 15 mmol/L (22-29); Chloride 111 mmol/L (96-108); Creatinine Clr Calc Pharmacy 124.5; Estimated Glomerular Filt Rate > 60; Glucose Random 93 mg/dL (60-115); Potassium 4.5 mmol/L (3.3-5.1); Sodium 138 mmol/L (135-145)
[2023-04-07 07:48] VITALS: BP 96/53; PULSE 71; RESP 16; TEMP 36.6; O2SAT 99
[2023-04-07] MEDS: Famotidine/PF 20 MG/2 ML VIAL IVPUSH (08:11)
--- NOTE | 2023-04-07 08:58 | MHC.CM.PN ---
Female s/p gastric sleeve. She lives with family. She is independent with functional mobility. She is discharged to home self care. She has arranged for transportation home.
--- NOTE | 2023-04-07 13:47 | HO.POSTANES ---
Post Anesthesia Evaluation Post Anesthesia Evaluation Date of Service: 04/07/23 Vital Signs: Vital Signs Temp Pulse Resp BP Pulse Ox O2 Del Method 04/07/23 07:48 97.8 F 71 16 96/53 L 99 Room Air 04/07/23 09:01 Room Air 04/07/23 03:29 97.6 F 78 16 118/66 96 Room Air Anesthesia: General Endotracheal-GETA Mental Status: Awake Pain Control: Satisfactory Nausea/Vomiting: None Hydration: Adequate Anesthesia-Related Issues: No Anes. Related Issues
== END 2023-04-07 10:52 | disposition home or self-care (01) ==
LOC: HO.SSS 09:53 → HO.S3 13:01
PROVIDERS: Physician Assistant; Physician Assistant Surgical; PCP Internal Medicine; Visit Provider Surgery
PROC: (CPT 43845; principal; 2023-04-06 10:10)
DX: E66.01 Morbid (severe) obesity due to excess calories (principal); Z68.37 Body mass index [BMI] 37.0-37.9, adult; G89.18 Other acute postprocedural pain; Z98.84 Bariatric surgery status; Z90.3 Acquired absence of stomach [part of]; K66.0 Peritoneal adhesions (postprocedural) (postinfection); K74.00 Hepatic fibrosis, unspecified; M79.89 Other specified soft tissue disorders; M19.91 Primary osteoarthritis, unspecified site; F32.A Depression, unspecified; R06.2 Wheezing; E55.9 Vitamin D deficiency, unspecified; E50.9 Vitamin A deficiency, unspecified; R53.83 Other fatigue; Z98.51 Tubal ligation status; Z79.899 Other long term (current) drug therapy; Z20.822 Contact with and (suspected) exposure to COVID-19; Z90.49 Acquired absence of other specified parts of digestive tract
CPT/HCPCS: 43775; 43659; 49329; 43239; 36415; 80048; 85014; 85018; 85025; 86850; 86900; 86901; 87635; 88304; 88305; 88307; 88342; A4649; C9088; C9145; J0131; J0690; J1100; J1170; J2250; J2371; J2405; J2795; J3010

== ENCOUNTER → 2023-04-06 07:53 | Outpatient (BNV) | payer OTHER, SELFPAY | PROVIDERS: PCP Internal Medicine; Visit Provider Surgery | DX: E66.9 Obesity, unspecified (principal); Z68.37 Body mass index [BMI] 37.0-37.9, adult; K74.00 Hepatic fibrosis, unspecified | CPT/HCPCS: 43659; 43775 ==

== ENCOUNTER 2023-04-12 12:52 | Outpatient (AMB) | payer OTHER, SELFPAY ==
--- NOTE | 2023-04-12 13:29 | MHC.OFFVISWM ---
Intake VS Expanded 04/12/23 13:33 Height 5 ft 2 in Weight 198 lb 3.2 oz BMI 36.2 BP 104/57 L Blood Pressure Location Rt brachial Blood Pressure Position Sitting Pulse 95 Pulse Source Pulse Oximeter Temp 98.2 F Temperature Source Temporal Artery Scan Pulse Oximetry 99 Oxygen Delivery Method Room Air Body Fat 86.4 Body Fat Percentage 43.6 Free Fat Mass 111.8 Muscle Mass 106.0 Visceral Mass 11.0 Water Mass 79.8 BMR 1,571 Intake Visit Reasons: (OV) 6 Days PO LSG 04/06/23 [facility] Required: No Allergies No Known Allergies [No Known Allergies*] Allergy (Verified 04/12/23 13:31) Medication List - Last Reconciled 04/12/23 by ROXANA Hadley blood pressure monitor As directed cetirizine (Zyrtec) 10 mg PO DAILY PRN melatonin 10 mg PO BEDTIME PRN pantoprazole 40 mg PO DAILY 90 days sucralfate 10 mL PO BID HPI HPI Comments History of Present Illness Details 42 yo female POD 6 s/p LSG Pos BM No pain Tolerating 3 celebrate 4 in 1 shakes and 50 oz total of fluids daily PFSH Medical History (Updated 04/06/23 @ 12:33 by Iveth Aparicio PA-C) Depression DJD (degenerative joint disease) Wheezing Surgical History (Updated 04/12/23 @ 13:32 by Francine Miles CMA) History of 2 sections History of laparoscopic cholecystectomy History of tubal ligation Hx of vein stripping S/P laparoscopic sleeve gastrectomy Family History Mother Heart disease Father Substance use disorder Brother No problems noted. Son No problems noted. Daughter No problems noted. 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 Current occupational exposures/hazards: No Cognitive needs: No Hearing needs: No Vision needs: No Physical Exam Vital Signs: Last Vital Signs Temp 98.2 F 04/12/23 13:33 Pulse 95 04/12/23 13:33 BP 104/57 L 04/12/23 13:33 Pulse Ox 99 04/12/23 13:33 Oxygen Delivery Method Room Air 04/12/23 13:33 BMI result Body Mass Index 36.2 GI Inspection: Yes incision (c/d/i, mild ecchymosis) Assessment & Plan Assessment & Plan (1) S/P laparoscopic sleeve gastrectomy: Code(s): Z98.84 - Bariatric surgery status Plan: POD 6 s/p LSG on 04/06/[address] Ferreira Weight loss prior to surgery was 35.4 pounds or 15.1% TBWL. Original weight on 12/02/22 was 233.6 pounds and op weight was 207.4 pounds. Be sure to text Dr Ferreira exactly 1 week after surgery your weight from your home scale so he can adjust your meal plan. Continue meal plan until f/u w Hahn in 3 weeks May shower, no submersion in bath for another week Continue abdominal binder with activity and exercise for the next 2 weeks. Exercise prior to surgery was Treadmill, may resume No abdominal exercises for 6 weeks post operatively Will be emailed link to post op video for review Reminded of the pace of drinking, 2 mL per minute, 1 oz/15 min. Medications: Discontinued vitamin A palmitate 10,000 units orally one per day; 30 caps 2RF E50.9 - Vitamin A deficiency, unspecified Coding Level of Care Code Global (58576) Diagnoses S/P laparoscopic sleeve gastrectomy Z98.84
[2023-04-12 13:33] VITALS: BP 104/57; PULSE 95; TEMP 36.8; O2SAT 99; BMI 36.2
== END 2023-04-12 14:38 | disposition home or self-care (01) ==
PROVIDERS: PCP Internal Medicine; Visit Provider Physician Assistant Surgical
DX: E66.9 Obesity, unspecified (principal); Z68.36 Body mass index [BMI] 36.0-36.9, adult; Z90.3 Acquired absence of stomach [part of]; Z98.84 Bariatric surgery status
CPT/HCPCS: 99024

== ENCOUNTER → 2023-04-12 12:52 | Outpatient (BNVA) | payer OTHER, SELFPAY | PROVIDERS: PCP Internal Medicine; Visit Provider Physician Assistant Surgical ==

== ENCOUNTER 2023-05-04 16:21 | Outpatient (AMB) | payer OTHER, SELFPAY ==
--- NOTE | 2023-05-04 16:25 | MHC.OFFVISWM ---
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 Presents for 1 month post op visit. Weight today is 192.4 pounds, with a BMI of 35.2. There has been a 41.2 pound weight loss,(initial weight 233.6 pounds) since starting the program on 12/02/22 reflecting a 17.6% total body weight loss and a weight loss of 15 pounds since surgery (operative weight 207.4 pounds) reflecting a 7.2% TBWL since surgery. No complaints of nausea, emesis, abdominal pain or reflux. Reports infrequent but normal bowel movements every 2-3 days. Has had improving bilateral plantar fasciitis, now mostly affecting her left foot. Saw podiatry and got an injection. Present meal plan includes: celebrate 4 in 1 2 scoops, 1 scoop, 1 scoop ZP bar drinking 64 oz water ? Exercise routine includes: treadmill 200 calories in AM and 100 calories prior to bed over the last 2 days. [facility] Medical History (Updated 04/15/23 @ 00:02 by Willam Henderson) BMI 37.0-37.9, adult Depression DJD (degenerative joint disease) Wheezing Surgical History History of 2 sections History of laparoscopic cholecystectomy History of tubal ligation Hx of vein stripping S/P laparoscopic sleeve gastrectomy Family History Mother Heart disease Father Substance use disorder Brother No problems noted. Son No problems noted. Daughter No problems noted. 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 Current occupational exposures/hazards: No Cognitive needs: No Hearing needs: No Vision needs: No Physical Exam GI Inspection: Yes incision (c/d/i) Assessment & Plan Assessment & Plan (1) Obesity: Code(s): E66.9 - Obesity, unspecified Plan: She may want to add food and/or change shakes Continue to exercise as able as foot improves Will text next week with her choice Add senna 2 hs and fiber gummy once daily for constipation Medications: Discontinued vitamin A palmitate 10,000 units orally one per day; 30 caps 2RF E50.9 - Vitamin A deficiency, unspecified Coding Level of Care Code Global (26643) Diagnoses Obesity E66.9
[2023-05-04 16:29] VITALS: BP 100/65; PULSE 88; TEMP 37; O2SAT 97; BMI 35.2
== END 2023-05-04 17:25 | disposition home or self-care (01) ==
PROVIDERS: PCP Internal Medicine; Visit Provider Physician Assistant Surgical
DX: E66.9 Obesity, unspecified (principal); Z68.35 Body mass index [BMI] 35.0-35.9, adult; Z90.3 Acquired absence of stomach [part of]; Z98.84 Bariatric surgery status
CPT/HCPCS: 99024

== ENCOUNTER → 2023-05-04 16:21 | Outpatient (BNVA) | payer OTHER, SELFPAY | PROVIDERS: PCP Internal Medicine; Visit Provider Physician Assistant Surgical ==

== ENCOUNTER 2023-08-11 09:25 | Outpatient (AMB) | payer OTHER, SELFPAY ==
[2023-08-11 08:45] VITALS: BMI 29.8
--- NOTE | 2023-08-11 08:45 | A.OFFVIS_ITS ---
Intake VS Expanded 08/11/23 08:45 Height 5 ft 2 in Weight 163 lb 3.2 oz BMI 29.8 Body Fat % 36.8 Body Fat Mass 60 Intake Visit Reasons: (video) PO LSG 04/06/23 Allergies No Known Allergies [No Known Allergies*] Allergy (Verified 05/04/23 16:28) HPI HPI Comments History of Present Illness Details This?a?42?yo female who is s/p LSG without hiatal hernia repair on? 04/06/[address] Ferreira. Presents for 4 month post op visit. Weight today is 163.2 pounds, with a BMI of 29.8. There has been a 70.4 pound weight loss,(initial weight 233.6 pounds) since starting the program on 12/02/22 reflecting a 30.1% total body weight loss and a weight loss of 44.2 pounds since surgery (operative weight 207.4 pounds) reflecting a 21.3% TBWL since surgery. No complaints of nausea, emesis, abdominal pain or reflux. Reports infrequent but normal bowel movements every 2-3 days. Taking celebrate MVI although not consistently. Has had improving bilateral plantar fasciitis, now mostly affecting her left foot. Saw podiatry and got an injection. She has been feeling unwell over the last week with a cold. Now slowly recovering. Wants to return to a stricter meal plan and use Orgain powder as she has a large supply of it at home. Present meal plan includes: Pa-Go Mobile RTD, (30 gm) 9-11 ZP bar, 2-5 meal 6 pm 8 forks, 8 forks another [employer] shake or another bar 8-10 drinking 64 oz water ? Exercise routine includes: none in the past 1-2 weeks previously treaadmill 30 minutes, not tracking calnChanneles treadmill 200 calories in AM and 100 calories prior to bed over the last 2 days. [facility] Medical History (Updated 08/11/23 @ 09:20 by ROXANA Hadley) Depression BMI 37.0-37.9, adult DJD (degenerative joint disease) Wheezing Surgical History History of 2 sections History of laparoscopic cholecystectomy History of tubal ligation Hx of vein stripping S/P laparoscopic sleeve gastrectomy Family History Mother Heart disease Father Substance use disorder Brother No problems noted. Son No problems noted. Daughter No problems noted. 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 Return to clinic in 1 month by telephone to ensure stability and office visit in 2 months for 6 month follow-up, checking labs at that time. Orders: Orders Ferritin Today E50.9 - Vitamin A deficiency, unspecified, E55.9 - Vitamin D deficiency, unspecified, E66.3 - Overweight, K74.00 - Hepatic fibrosis, unspecified, Z98.84 - Bariatric surgery status Vitamin B1 Today E50.9 - Vitamin A deficiency, unspecified, E55.9 - Vitamin D deficiency, unspecified, E66.3 - Overweight, K74.00 - Hepatic fibrosis, unspecified, Z98.84 - Bariatric surgery status Vitamin B12 and Folate Today E50.9 - Vitamin A deficiency, unspecified, E55.9 - Vitamin D deficiency, unspecified, E66.3 - Overweight, K74.00 - Hepatic fibrosis, unspecified, Z98.84 - Bariatric surgery status Comprehensive Met. Panel Today E50.9 - Vitamin A deficiency, unspecified, E55.9 - Vitamin D deficiency, unspecified, E66.3 - Overweight, K74.00 - Hepatic fibrosis, unspecified, Z98.84 - Bariatric surgery status Vitamin D 25-OH Total Today E50.9 - Vitamin A deficiency, unspecified, E55.9 - Vitamin D deficiency, unspecified, E66.3 - Overweight, K74.00 - Hepatic fibrosis, unspecified, Z98.84 - Bariatric surgery status Vitamin A Today E50.9 - Vitamin A deficiency, unspecified, E55.9 - Vitamin D deficiency, unspecified, E66.3 - Overweight, K74.00 - Hepatic fibrosis, unspecified, Z98.84 - Bariatric surgery status Zinc Today E50.9 - Vitamin A deficiency, unspecified, E55.9 - Vitamin D deficiency, unspecified, E66.3 - Overweight, K74.00 - Hepatic fibrosis, unspecified, Z98.84 - Bariatric surgery status IRON PROFILE Today E50.9 - Vitamin A deficiency, unspecified, E55.9 - Vitamin D deficiency, unspecified, E66.3 - Overweight, K74.00 - Hepatic fibrosis, unspecified, Z98.84 - Bariatric surgery status Lipid Panel Today E50.9 - Vitamin A deficiency, unspecified, E55.9 - Vitamin D deficiency, unspecified, E66.3 - Overweight, K74.00 - Hepatic fibrosis, unspecified, Z98.84 - Bariatric surgery status TSH reflex Free T4 Today E50.9 - Vitamin A deficiency, unspecified, E55.9 - Vitamin D deficiency, unspecified, E66.3 - Overweight, K74.00 - Hepatic fibrosis, unspecified, Z98.84 - Bariatric surgery status C Reactive Protein Today E50.9 - Vitamin A deficiency, unspecified, E55.9 - Vitamin D deficiency, unspecified, E66.3 - Overweight, K74.00 - Hepatic fibrosis, unspecified, Z98.84 - Bariatric surgery status Complete Blood Count Auto Diff Today E50.9 - Vitamin A deficiency, unspecified, E55.9 - Vitamin D deficiency, unspecified, E66.3 - Overweight, K74.00 - Hepatic fibrosis, unspecified, Z98.84 - Bariatric surgery status Hemoglobin A1c Today E50.9 - Vitamin A deficiency, unspecified, E55.9 - Vitamin D deficiency, unspecified, E66.3 - Overweight, K74.00 - Hepatic fibrosis, unspecified, Z98.84 - Bariatric surgery status Telehealth Telehealth Location of provider rendering services: practice address Location of patient: address on file Patient Identification confirmed using: Name, : Yes Telehealth method: voice only Patient verbally consented to treatment: Yes Patient verbally consented to billing insurance company: Yes Patient informed of any privacy concerns related to visit: Yes Minutes spent on Phone/Video with Pt.: 18 Coding Level of Care Code Tele Est Pt Level 3 (12142) Diagnoses Overweight (BMI 25.0-29.9) E66.3 Time Spent (min) 25
== END 2023-08-11 09:26 | disposition home or self-care (01) ==
LOC: HO.HBS 09:25
PROVIDERS: PCP Internal Medicine; Visit Provider Physician Assistant Surgical
DX: E66.3 Overweight (principal)
CPT/HCPCS: 99213

== ENCOUNTER → 2023-08-11 09:25 | Outpatient (BNVA) | payer OTHER, SELFPAY | PROVIDERS: PCP Internal Medicine; Visit Provider Physician Assistant Surgical | DX: E66.3 Overweight (principal); E55.9 Vitamin D deficiency, unspecified; E50.9 Vitamin A deficiency, unspecified; K74.00 Hepatic fibrosis, unspecified; Z98.84 Bariatric surgery status ==

== ENCOUNTER 2023-10-16 07:14 | Outpatient (REF) | payer OTHER, SELFPAY ==
[2023-10-16 07:49] LABS: MANUAL DIFF FLAG NO
[2023-10-16 08:14] LABS: Basophils Percent Auto 0.4 % (0-2); Eosinophils Absolute Auto 0.1 X10*3/uL (0.0-0.4); Eosinophils Percent Auto 1.6 % (0-4); Hemoglobin 12.7 g/dl (12.0-16.0); Imm Gran Abs Auto 0.01 X10*3/uL (0.00-0.03); Imm Gran Pct Auto 0.2 % (0.0-0.4); Lymphocytes Absolute Auto 1.5 X10*3/uL (1.2-4.9); Lymphocytes Percent Auto 30.6 % (20-40); Mean Corpuscular HGB Conc 33.4 g/dl (31.0-35.0); Mean Corpuscular Hemoglobin 30.4 pg (27.0-33.0); Mean Corpuscular Volume 90.9 fL (80.0-98.0); Mean Platelet Volume 10.2 fL (9.4-12.3); Monocytes Absolute Auto 0.4 X10*3/uL (0.1-1.2); Monocytes Percent Auto 8.1 % (2-11); Neutrophils Absolute Auto 2.9 x10*3/uL (2.0-8.3); Neutrophils Percent Auto 59.1 % (45-73); Platelet Count 256 X10*3/uL (160-400); Red Blood Count 4.18 X10*6/uL (4.20-5.50); Red Cell Distribution Width 12.6 % (11.0-16.0); White Blood Count 4.9 X10*3/uL (4.8-10.8)
[2023-10-16 08:21] LABS: Estimated Average Glucose 91 mg/dL; Hemoglobin A1c % 4.8 % (<6.0)
[2023-10-16 08:49] LABS: Alanine Aminotransferase 11 U/L (0-31); Albumin Level 3.9 g/dL (3.5-5.0); Alkaline Phosphatase 63 U/L (39-117); Anion Gap 8 (12-20); Aspartate Amino Transferase 15 U/L (5-31); Bilirubin Total 0.6 mg/dL (0.0-1.0); Blood Urea Nitrogen 10 mg/dL (9-16); C Reactive Protein 0.21 mg/dL (< or = 0.50); Calcium 9.2 mg/dL (8.4-10.2); Carbon Dioxide 29 mmol/L (22-29); Chloride 106 mmol/L (96-108); Cholesterol 179 mg/dL (<200); Estimated Glomerular Filt Rate > 60; Glucose Random 94 mg/dL (60-115); HDL Cholesterol 53 mg/dL (>40); Iron 110 mcg/dL (30-160); LDL Cholesterol Calculated 113 mg/dL (<100); Percent Iron Saturation 37 % (15-50); Potassium 4.4 mmol/L (3.3-5.1); Sodium 139 mmol/L (135-145); Total Iron Binding Capacity 301 mcg/dL (228-428); Total Protein 6.6 g/dL (6.5-8.0); Triglycerides 67 mg/dL (<150); Unsaturated Iron Binding 191 ug/dL
[2023-10-16 09:06] LABS: Ferritin 29 ng/mL (10-250); TSH reflex Free T4 0.53 uIU/mL (0.32-4.0); Vitamin D 25-OH Total 59.3 ng/mL (>30)
[2023-10-16 09:15] LABS: Folate 11.6 ng/mL (> or = 4.0); Vitamin B12 1285 pg/mL (200-900)
[2023-10-19 13:04] LABS: Zinc 74 mcg/dL (60-130)
[2023-10-20 02:04] LABS: Vitamin A 31 mcg/dL (38-98)
[2023-10-21 06:09] LABS: Vitamin B1 18 nmol/L (8-30)
== END 2023-10-16 07:15 | disposition home or self-care (01) ==
LOC: HO.LAB 07:14
PROVIDERS: PCP Internal Medicine; Visit Provider Physician Assistant Surgical
DX: Z01.818 Encounter for other preprocedural examination (principal); E66.9 Obesity, unspecified; E55.9 Vitamin D deficiency, unspecified; E50.9 Vitamin A deficiency, unspecified; K74.00 Hepatic fibrosis, unspecified; Z98.84 Bariatric surgery status
CPT/HCPCS: 36415; 80053; 80061; 82306; 82607; 82728; 82746; 83036; 83540; 84425; 84443; 84590; 84630; 85025; 86140; 86900; 86901

== ENCOUNTER 2023-10-19 09:55 | Outpatient (AMB) | payer OTHER, SELFPAY ==
--- NOTE | 2023-10-19 09:57 | MHC.OFFVISWM ---
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 [address] Pati flor. Presents for 4 month post op visi t. Weight today is 163.2 pounds, wit h a BMI of 29.8. There has been a 7 0.4 pound weight l oss,(initial weigh t 233.6 pounds) si nce starting the p rogram on 12/02/22 r eflecting a 30.1% total body weight loss and a weight loss of 44.2 pound s since surgery (o perative weight 20 7.4 pounds) reflec ting a 21.3% TBWL since surgery. No complaints of yelena sea, emesis, abdom inal pain or reflu x. Reports infrequ ent but normal bow el movements every 2-3 days. Taking celebrate MVI and spencer + D although n ot consistently. She has had a slow ing of her weight loss but continues to lose. Is frus trated with all th e shakes and bars and wants a meal c hange w variety. S tates the excess s kin of her abdomen causes a tingling sensation and christina e irritation if sh e has exposure to prolonged heat suc h as when exercisi ng. Present me al plan includes: fairlife 30 gm rt d, w coffee, ZP b ar, or lithuanian yogur t or cheese, apple s 11-12 bar or yog urt 4 pm meal 6 pm 5 forks, 5 for[address] ? Exercise ro utine includes: tr eaadmill 30 minute s, not tracking ca loires treadmill 3 00 calorie 4 d per week. Any post op complicati ons: none LIAM: nev er DM: never HTN: never Hyperlipidem ia: never GERD:?0-5 scale ? ?0 = no symptoms ? ?1 = symptoms noti ceable but not bot hersome 2 =sympto ms bothersome but not daily ? 3 = sy mptoms bothersome and daily 4 = s ymptoms affect maisha ly activities 5 = symptoms are inca pacitating, unable to do daily activ ities ? How bad is the heartburn: 0 ? Heartburn whil e lying down: 0 ? Heartburn when sta nding up: 0 ? Hear tburn after meals: 0 ? Does heartbur n change your diet : 0 ? Does heartbu rn wake you up fro m sleep: 0 ? Do yo u have difficulty swallowin ? Do you have pain wit h swallowin ? If you take medici ne for your reflux , does this affect your daily life: 0 Satisfaction wi th present conditi on - satisfied or not satisfied: sa tisfied [facility] Medical History Depression BMI 37.0-37.9, adult DJD (degenerative joint disease) Wheezing Surgical History S/P laparoscopic sleeve gastrectomy History of laparoscopic cholecystectomy Hx of vein stripping History of tubal ligation History of 2 sections Family History Mother Heart disease Father Substance use disorder Brother No problems noted. Son No problems noted. Daughter No problems noted. 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 Current occupational exposures/hazards: No Cognitive needs: No Hearing needs: No Vision needs: No Review of Systems Const All systems reviewed & are unremarkable except as noted in HPI and below Physical Exam Vital Signs: Last Vital Signs Temp 96.4 F L 10/19/23 10:04 Pulse 68 10/19/23 10:04 BP 117/62 10/19/23 10:04 Pulse Ox 98 10/19/23 10:04 Oxygen Delivery Method Room Air 10/19/23 10:04 BMI result Body Mass Index 28.6 Const General: cooperative and no acute distress Orientation/consciousness: patient oriented x3 Resp Effort & Inspection: normal respiratory effort Auscultation: clear to auscultation bilaterally Cardio Rate: regular rate Rhythm: regular rhythm GI Inspection: Yes normal to inspection and Yes incision (well healed) Palpation (GI): Soft to palpation and no masses Skin Other: Mild irritation noted underneath the pannus Neuro General: patient oriented x3 Assessment & Plan Assessment & Plan (1) Overweight (BMI 25.0-29.9): Code(s): E66.3 - Overweight Plan: Patient wishes to have more variety in her meal plan. Fair life ready to drink mixed with coffee, split in 2, 1st half in the morning and 2nd half around mid day. Add fresh fruit mid day. Zone perfect bar or Yoruba yogurt or Quest chips in the mid afternoon.(she requested something not sweet and crunchy) Meal 5 forks of protein and 5 forks of vegetables Add Peloton bike 2 days per week, add yoga 1 day per week She will communicate if there are any questions or concerns. Return to clinic 3 weeks. Labs from 10/16/2023, 6 months postop, looked good. Coding Level of Care Code Est Pt Level 3 (81603) Diagnoses Overweight (BMI 25.0-29.9) E66.3
[2023-10-19 10:04] VITALS: BP 117/62; PULSE 68; TEMP 35.8; O2SAT 98; BMI 28.6
== END 2023-10-19 10:43 | disposition home or self-care (01) ==
PROVIDERS: PCP Internal Medicine; Visit Provider Physician Assistant Surgical
DX: E66.3 Overweight (principal); Z68.28 Body mass index [BMI] 28.0-28.9, adult
CPT/HCPCS: 99213

== ENCOUNTER → 2023-10-19 09:55 | Outpatient (BNVA) | payer OTHER, SELFPAY | PROVIDERS: PCP Internal Medicine; Visit Provider Physician Assistant Surgical ==

== ENCOUNTER 2023-12-14 13:55 | Outpatient (AMB) | payer OTHER, SELFPAY ==
--- NOTE | 2023-12-14 08:20 | A.OFFVIS_ITS ---
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 [address] Pati flor. Presents for 8 month post op visi t. Weight today is 144 pounds, with a BMI of 26.3. Th ere has been a 89. 6 pound weight los s,(initial weight 233.6 pounds) sinc e starting the pro gram on 12/02/22 ref lecting a 38.3% to josue body weight lo ss and a weight lo ss of 63.2 pounds since surgery (ope rative weight 207. 4 pounds) reflecti ng a 30.4% TBWL si nce surgery. No c omplaints of nause a, emesis, abdomin al pain or reflux. Reports infrequen t but normal bowel movements every 2 -3 days. Taking ce lebrate MVI althou gh not consistentl y. Has difficulty doing exercise. She states she has gone from size 2x to medium and she is very motivated by that. Pres ent meal plan incl udes: Fair life r jaya to drink mixe d with coffee, spl it in 2, 1st half in the morning and 2nd half around m id day. Add fresh fruit mid day. Zone perfect bar o r Kazakh yogurt or Quest chips in the mid afternoon.(sh e requested someth ing not sweet and crunchy) Meal 5 fo rks of protein and 5 forks of vegeta bles drinking 64 o z water ? Exercis e routine includes : Pelaton bike - n one treadmill - 2 -3 x per week, 30 -45 minutes, 200 c alories yoga - non e PFSH Medical History Depression BMI 37.0-37.9, adult DJD (degenerative joint disease) Wheezing Surgical History S/P laparoscopic sleeve gastrectomy History of laparoscopic cholecystectomy Hx of vein stripping History of tubal ligation History of 2 sections Family History Mother Heart disease Father Substance use disorder Brother No problems noted. Son No problems noted. Daughter No problems noted. 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 She states that the time for her to exercise is in the morning, she reports getting plenty of sleep however does not get out of bed in the morning to exercise. We identified a goal of initiating a morning routine at approximately 05:00 going downstairs and exercising. Once she develops a routine, we will discuss weight training and cardio to help her achieve her goal of increased tone and muscle strength. In the meantime, she will text me with any questions or concerns. Return to clinic in 4-6 weeks Telehealth Telehealth Location of provider rendering services: practice address Location of patient: address on file Patient Identification confirmed using: Name, : Yes Telehealth method: voice only Patient verbally consented to treatment: Yes Patient verbally consented to billing insurance company: Yes Patient informed of any privacy concerns related to visit: Yes Minutes spent on Phone/Video with Pt.: 15 Coding Level of Care Code Tele Est Pt Level 3 (78197) Diagnoses S/P laparoscopic sleeve gastrectomy Z98.84 Time Spent (min) 20
[2023-12-14 08:21] VITALS: BMI 26.3
== END 2023-12-14 13:58 | disposition home or self-care (01) ==
LOC: HO.HBS 13:55
PROVIDERS: PCP Internal Medicine; Visit Provider Physician Assistant Surgical
DX: E66.3 Overweight (principal); Z68.26 Body mass index [BMI] 26.0-26.9, adult; Z90.3 Acquired absence of stomach [part of]; Z98.84 Bariatric surgery status
CPT/HCPCS: 99213

== ENCOUNTER → 2023-12-14 13:55 | Outpatient (BNVA) | payer OTHER, SELFPAY | PROVIDERS: PCP Internal Medicine; Visit Provider Physician Assistant Surgical | DX: Z98.84 Bariatric surgery status (principal) ==

== ENCOUNTER 2024-02-02 11:45 | Outpatient (AMB) | payer OTHER, SELFPAY ==
[2024-02-02 07:49] VITALS: BMI 28.2
--- NOTE | 2024-02-02 07:49 | A.OFFVIS_ITS ---
VS Expanded 02/02/24 07:49 Height 5 ft 2 in Weight 154 lb 3.2 oz BMI 28.2 Body Fat % 34.3 Body Fat Mass 52.8 Fat Free Mass 101.2 Visceral Fat Rating 11 Body Water % 45.1 Body Water Mass 69.4 Muscle Mass/Score 95.2 Basal Metabolic Rate/Score 1,349 Intake Visit Reasons: (tv) PO LSG 04/06/23 Allergies No Known Allergies [No Known Allergies*] Allergy (Verified 10/19/23 10:05) HPI Comments Details: This?a?42?yo female who is s/p LSG without hiatal hernia repair on?04/06/[address] Ferreira. Presents for 10 month post op visit. Weight today is 154.2 pounds, with a BMI of 28.2. There has been a 79.4 pound weight loss,(initial weight 233.6 pounds) since starting the program on 12/02/22 reflecting a 33.9% total body weight loss and a weight loss of 53.2 pounds since surgery (operative weight 207.4 pounds) reflecting a 25.6% TBWL since surgery. No complaints of nausea, emesis, abdominal pain or reflux. Reports infrequent but normal bowel movements every 2-3 days. Taking celebrate MVI consistently. She states that she has been having difficulty maintaining consistency and has not been following the meal plan. Wants to return to a stricter meal plan and use Orgain powder as she has a large supply of it at home. Present meal plan includes: fairlife RTD, 1/2 mixed w coffee (30 gm) 9-11 ZP bar, or argentine yogurt2-5 meal 6 pm 5 forks, 5 forks drinking 64 oz water ? Exercise routine includes: none in the past 2-3 weeks. Has treadmill and pelaton bike at home but bike not working. previously treaadmill 30 minutes, not tracking T[employer]ia treadmill 200 calories in AM and 100 calories prior to bed over the last 2 days. [facility] Medical History Depression BMI 37.0-37.9, adult DJD (degenerative joint disease) Wheezing Surgical History S/P laparoscopic sleeve gastrectomy History of laparoscopic cholecystectomy Hx of vein stripping History of tubal ligation History of 2 sections Family History Mother Heart disease Father Substance use disorder Brother No problems noted. Son No problems noted. Daughter No problems noted. 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 We will use orgain protein powder 2 shakes, 2 scoops each in 10 oz of unsweetened almond milk over 2 hours Meal with 6 forks protein and 6 forks vegetables Discussed the importance of consistent exercise with a goal of burning 300 calories on her treadmill 6 days per week and 1 day of yoga or Pilates. We will have her return to the office in 1 month.
== END 2024-02-02 12:31 | disposition home or self-care (01) ==
LOC: HO.HBS 11:45
PROVIDERS: PCP Internal Medicine; Visit Provider Physician Assistant Surgical
DX: E66.3 Overweight (principal)
CPT/HCPCS: 99213

== ENCOUNTER → 2024-02-02 11:45 | Outpatient (BNVA) | payer OTHER, SELFPAY | PROVIDERS: PCP Internal Medicine; Visit Provider Physician Assistant Surgical ==

== ENCOUNTER 2025-02-17 07:05 | Outpatient (REF) | payer BC, SELFPAY ==
[2025-02-17 07:12] LABS: MANUAL DIFF FLAG NO
[2025-02-17 07:54] LABS: Basophils Percent Auto 0.5 % (0-2); Eosinophils Absolute Auto 0.1 X10*3/uL (0.0-0.4); Eosinophils Percent Auto 0.9 % (0-4); Hemoglobin 11.9 g/dl (12.0-16.0); Imm Gran Abs Auto 0.02 X10*3/uL (0.00-0.03); Imm Gran Pct Auto 0.3 % (0.0-0.4); Lymphocytes Absolute Auto 1.7 X10*3/uL (1.2-4.9); Lymphocytes Percent Auto 28.1 % (20-40); Mean Corpuscular Hemoglobin 30.7 pg (27.0-33.0); Mean Corpuscular Volume 90.4 fL (80.0-98.0); Mean Platelet Volume 9.7 fL (9.4-12.3); Monocytes Absolute Auto 0.5 X10*3/uL (0.1-1.2); Monocytes Percent Auto 8.7 % (2-11); Neutrophils Absolute Auto 3.6 x10*3/uL (2.0-8.3); Neutrophils Percent Auto 61.5 % (45-73); Platelet Count 223 X10*3/uL (160-400); Red Blood Count 3.87 X10*6/uL (4.20-5.50); Red Cell Distribution Width 12.5 % (11.0-16.0); White Blood Count 5.9 X10*3/uL (4.8-10.8)
[2025-02-17 09:02] LABS: Alanine Aminotransferase 15 U/L (0-31); Alkaline Phosphatase 35 U/L (39-117); Anion Gap 11 (12-20); Aspartate Amino Transferase 15 U/L (5-31); Bilirubin Total 0.5 mg/dL (0.0-1.0); Blood Urea Nitrogen 10 mg/dL (9-16); Carbon Dioxide 26 mmol/L (22-29); Chloride 109 mmol/L (96-108); Estimated Glomerular Filt Rate > 60; Glucose Fasting 93 mg/dL (60-99); Potassium 4.1 mmol/L (3.3-5.1); Sodium 142 mmol/L (135-145); Total Protein 6.3 g/dL (6.5-8.0)
[2025-02-17 09:07] LABS: Thyroid Stimulating Hormone 1.06 uIU/mL (0.32-4.0); Vitamin D 25-OH Total 44.3 ng/mL (>30)
[2025-02-17 09:20] LABS: Folate 11.8 ng/mL (> or = 4.0); Vitamin B12 307 pg/mL (200-900)
== END 2025-02-17 07:06 | disposition home or self-care (01) ==
LOC: HO.LAB 07:05
PROVIDERS: PCP Internal Medicine; Visit Provider Internal Medicine
DX: D64.9 Anemia, unspecified (principal); R53.83 Other fatigue; E55.9 Vitamin D deficiency, unspecified; E53.8 Deficiency of other specified B group vitamins
CPT/HCPCS: 36415; 80053; 82306; 82607; 82746; 84443; 85025

== ENCOUNTER 2025-04-06 15:47 | Outpatient (REF) | payer BC, SELFPAY | END 2025-04-06 15:48 | disposition home or self-care (01) | LOC: HO.MAMMO 15:47 | PROVIDERS: PCP Internal Medicine; Visit Provider Internal Medicine | DX: Z12.31 Encounter for screening mammogram for malignant neoplasm of breast (principal) | CPT/HCPCS: 77063; 77067 ==

== ENCOUNTER → 2025-04-06 16:00 | Outpatient (BNV) | payer BC, SELFPAY | PROVIDERS: PCP Internal Medicine; Visit Provider Radiology Body Imaging | DX: Z12.31 Encounter for screening mammogram for malignant neoplasm of breast (principal) | CPT/HCPCS: 77063; 77067 ==

== ENCOUNTER 2025-05-29 10:48 | Outpatient (AMB) | payer BC, SELFPAY ==
[2025-05-29 11:03] VITALS: BMI 29.3
--- NOTE | 2025-05-29 11:03 | A.OFFVIS_ITS ---
Vital Signs 3 05/29/25 11:03 Height 5 ft 2 in Weight 160 lb BMI 29.3 Intake Visit Reasons: plantar wart Intake Note: Darleen is a 44 year old female who presents today as a new patient for an evaluation of her plantar wart of the right foot. Pt states she has two warts on the bottom of her foot and finds it painful to ambulate and when she is resting it feels sore. She states she has tried various at home remedies for the warts and found no relief. Allergies No Known Allergies (No Known Allergies*) Allergy (Verified 05/29/25 11:03) HPI Comments Details: The patient is a 44-year-old female with a past medical history as seen below presenting with plantar warts on the right foot. The issue was first noticed in January and has been persistent since then. The patient attempted self-treatment using salicylic acid patches and liquid formulations, which provided limited relief. The wart is surrounded by a thickened, and the patient has not observed any drainage from the site. The patient reports that the wart appears to be increasing in size, with black discoloration noted near the big toe. The patient has not experienced any significant pain, although tenderness is noted upon palpation. She denies any recent pedal injuries. Denies any other pedal concerns. She denies any current nausea, vomiting, fever, or chills. [facility] Medical History (Updated 05/30/25 @ 07:40 by Deysi Byrne DPM) Pain in right foot Other specified epidermal thickening Plantar wart, right foot Depression BMI 37.0-37.9, adult DJD (degenerative joint disease) Wheezing Surgical History S/P laparoscopic sleeve gastrectomy History of laparoscopic cholecystectomy Hx of vein stripping History of tubal ligation History of 2 sections Family History Mother Heart disease Father Substance use disorder Brother No problems noted. Son No problems noted. Daughter No problems noted. 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 - Musculoskeletal: Denies significant pain, reports tenderness upon palpation. All systems reviewed & are unremarkable except as noted in HPI and below Physical Exam Vital Signs: BMI result Body Mass Index 29.3 Extrem Other: Right lower extremity focused physical exam: Derm: Plantar warts noted to the plantar aspect of the foot in the area of the 1st metatarsal head and 5th metatarsal head measuring approximately 0.4 x 0.4 cm. Hyperkeratotic lesions noted to the plantar warts. Upon debridement pinpoint bleeding noted to both lesions. Skin supple and turgor intact and within normal limits. No ecchymosis or erythema noted. No clinical signs of infection. No active drainage or purulence noted. Vascular: DP/PT pulses palpable. Capillary refill time less than 3 seconds. Temperature gradient warm to warm. Pedal hair absent. No edema noted. No varicosities noted. Neuro: Protective sensation is grossly intact. MSK: Mild pain on palpation to the hyperkeratotic lesion/plantar warts. No fluctuance noted. Range of motion of the forefoot, hindfoot, ankle within normal limits. Nonantalgic gait noted unassisted. Ankle/foot/toe images: 2 1. 2. Office Procedures AMB Wart Destruction Podiatry 16616 - Wart Destruction (<15) Procedure code (CPT) selection complete Office Meds salicylic acid 27.5 % topical film-forming liquid Performing Provider: Deysi Byrne DPM [place] [facility] [place] [facility] Administered by: Deysi Byrne DPM on 05/29/25 12:27 2 Dose Route Admin Location Dispensed Lot Number Expiration Date [facility] [employer] Officer 2 appl topical 10 mL [id number] [employer] Assessment & Plan Assessment & Plan (1) Plantar wart, right foot: Code(s): B07.0 - Plantar wart Category: Medical (2) Other specified epidermal thickening: Code(s): L85.8 - Other specified epidermal thickening Category: Medical (3) Pain in right foot: Code(s): M79.671 - Pain in right foot Category: Medical Plan Patient was informed and verbally consented to the use of an ambient scribe for clinic note documentation during this visit. I discussed with the patient the presence of 2 plantar warts to the right foot and the importance of debridement to expose blood vessels/pinpoint bleeding for effective treatment. We reviewed the use of salicylic acid and the need to protect the area with a Band-Aid to enhance treatment efficacy. I explained the follow-up process, including the potential need for further debridement if the wart persists. 1. Right foot, plantar warts: - Debrided the hyperkeratotic lesion formed onto the plantar warts and applied salicylic acid to the area. Applied a bandaid to the affected areas which patient is to leave on for 24 hours. - Patient advised to continue using umlj-vhb-xhalrrw salicylic acid patches or liquid formulations after 24 hours and to keep the areas clean and dry with bandaid or patch application. - Advised patient to avoid barefoot walking and to keep shoes and socks clean and dry. Follow-up appointment in two weeks for reassessment and potential further debridement/treatment. Orders: Orders 2 AMB Wart Destruction Podiatry 05/29/25 B07.0 - Plantar wart Coding Level of Care Code New Pt Level 4 (53665) Diagnoses Plantar wart, right foot B07.0 Other specified epidermal thickening L85.8 Pain in right foot M79.671 CPT Codes Destruction of Wart - CPT: 84735 - Wart Destruction (<15) ([id number]) Time Spent (min) 60
--- OUTSIDE RECORDS SUMMARY | 2025-05-29 12:06 | XMS_ITS | Clinical Summary ---
Author Organization [facility] Address [address] [place] [id number] Phone Care Team Providers Care Road Oiler Name Role Phone Sarah Sood MD Primary Care Provid er Allergies No known active allergies Medications cetirizine (ZYRTEC) 10 MG tablet Take 10 mg by mouth daily. Active escitalopram oxalate (LEXAPRO) 10 MG tablet Take 10 mg by mouth daily. 01/06/2022 Active fluticasone propionate (FLONASE) 50 mcg/actuation nasal spray 1 spray by Nasal route. 05/23/2021 Active albuterol 90 mcg/actuation inhaler Inhale 2 puffs into the lungs every 6 (six) hours as needed for wheezing. 8.5 g 02/08/2022 Active Immunizations No known immunizations Social History Tobacco Use Types Packs/Day Years Used Date Smoking Tobacco: Never Smokeless Tobacco: Never Education Answer Date Recorded Are you interested in more education? Not on eliceo e 12/26/2022 Are you concerned about learning? Not on file 12/26/2022 No 12/26/2022 No 12/26/2022 Digital Access Answer Date Recorded No 01/24/2023 No 01/24/2023 No 01/24/2023 Reliable internet access at home? Not on file 01/24/2023 Device with a working camera? Not on file Comments Unknown Sex and Gender Information Value Date Recorded Sex Assigned at Not on file Legal Sex Female 11:15 AM EDT Gender Identity Not on file Sexual Orientation Not on file Last Filed Vital Signs Vital Sign Reading Time Taken Comments Blood Pressure 131/89 02/08/2022 1:30 PM EDT Pulse 69 02/08/2022 1:30 PM EDT Temperature 37.1 C (98.8 F) 02/08/2022 1:30 PM EDT Respiratory Rate 18 02/08/2022 1:30 PM EDT Oxygen Saturation 98% 02/08/2022 1:30 PM EDT Inhaled Oxygen Concentration - - Weight 97.5 kg (215 lb) 02/08/2022 1:30 PM EDT Height 157.5 cm (5' 2 ) 02/08/2022 1:30 PM EDT Body Mass Index 39.32 02/08/2022 1:30 PM EDT Plan of Treatment Health Maintenance Due Date Last Done Comments DEPRESSION SCREENING 1992 HEPATITIS C SCREENING 1998 HIV ONE-TIME SCREENING (18-65 YEARS) 1998 PAP SMEAR 2001 MAMMOGRAM 2020 INFLUENZA VACCINE (#1) 2025 , 06/27/2019, 07/20/2018, Additional history exists COVID-19 VACCINE ( season) 2025 06/17/2021, 11/28/2020, 11/07/2020 Adult Td,Tdap Booster 07/22/2026 07/22/2016 SMOKING STATUS SCREENING (Once After 26 Yrs) Completed 02/08/2022 HEPATITIS A VACCINES Aged Out No long er eligible based on patient's age to complete this topic HIB VACCINES Aged Out No longer eligi ble based on patient's age to complete this topic MENINGOCOCCAL VACCINES (ACWY) Aged Out No longer eligible based on patient's age to complete this topic MENINGOCOCCAL VACCINES (B) Aged Out N o longer eligible based on patient's age to complete this topic PNEUMOCOCCAL VACCINES (0-49 years) Aged Out No longer eligible based on patient's age to complete this topic Medical Devices Not on file Insurance [facility] H[facility] [employer] [facility] HMO Care Teams Road Oiler Relationship Specialty Start Date End Date Sarah Sood MD [address] [place] [address] PCP - General Internal Medicine 02/08/22 Additional Source Comments The information contained in this document represents components of the legal health record. It is not the complete legal health record.[facility]
== END 2025-05-29 11:26 | disposition home or self-care (01) ==
LOC: HO.HPODS 10:49
PROVIDERS: PCP Internal Medicine; Visit Provider Student in an Organized Health Care Education/Training Program
DX: B07.0 Plantar wart (principal); L85.8 Other specified epidermal thickening; M79.671 Pain in right foot
CPT/HCPCS: 17110; 99203

== ENCOUNTER → 2025-05-29 10:48 | Outpatient (BNVA) | payer BC, SELFPAY | PROVIDERS: PCP Internal Medicine; Visit Provider Student in an Organized Health Care Education/Training Program | DX: B07.0 Plantar wart (principal); L85.8 Other specified epidermal thickening; M79.671 Pain in right foot | CPT/HCPCS: 17110 ==

== ENCOUNTER 2025-05-31 13:42 | Outpatient (AMB) | payer BC, SELFPAY ==
[2025-05-31 13:43] VITALS: BP 107/60; PULSE 81; BMI 30.2
--- NOTE | 2025-05-31 13:43 | MHC.OFFVIS ---
Vital Signs 05/31/25 13:43 Height 5 ft 2 in Weight 165 lb 5.547 oz BMI 30.2 BP 107/60 Blood Pressure Location Rt brachial Position Sitting Pulse 81 Intake Visit Reasons: colo screening Intake Note: Darleen presents in the office as a colonoscopy screening. CC: States colo cancer runs in the family and this will be her first one! Machine Builder Required: No Allergies No Known Allergies (No Known Allergies*) Allergy (Verified 05/31/25 13:46) HPI HPI colo screening: Details: 44 year old? female with past medical history of laparoscopic cholecystectomy, laparoscopic sleeve gastrectomy, migraine headaches, family history of colon cancer is here today for pre colonoscopy screening.? Patient was sent to us by her PCP.? This is her first colonoscopy screening.? Patient denies any gastrointestinal symptoms in the past or at present.? Maternal great-grandmother in her late 50s from colon cancer.? Denies history of difficulty with sedation or anesthesia in the past.? Negative for history of sleep apnea.? Denies any history of cardiac, renal, pulmonary, or hepatic disease.?? No history of infectious? diseases like hepatitis A, B, C, HIV or tuberculosis.? Patient is not on any anticoagulation [facility] Medical History Pain in right foot Other specified epidermal thickening Plantar wart, right foot Depression BMI 37.0-37.9, adult DJD (degenerative joint disease) Wheezing Surgical History S/P laparoscopic sleeve gastrectomy History of laparoscopic cholecystectomy Hx of vein stripping History of tubal ligation History of 2 sections Family History Mother Heart disease Father Substance use disorder Brother No problems noted. Son No problems noted. Daughter No problems noted. 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 Current occupational exposures/hazards: No Cognitive needs: No Hearing needs: No Vision needs: No Review of Systems Const Denies weight gain and Denies weight loss ENT Reports no additional complaints, Denies dysphagia and Denies odynophagia Card Reports no additional complaints Resp Reports no additional complaints GI Denies abdominal pain, Denies belching, Denies melena, Denies bloating, Denies change in bowel habits, Denies dysphagia, Denies excessive flatus, Denies dyspepsia, Denies heartburn, Denies diarrhea, Denies loose stools, Denies nausea, Denies odynophagia and Denies vomiting Musc Reports no additional complaints Neuro Reports no additional complaints Psych Reports no additional complaints Endo Reports no additional complaints Physical Exam Vital Signs: Last Vital Signs Pulse 81 05/31/25 13:43 BP 107/60 05/31/25 13:43 BMI result Body Mass Index 30.2 Const General: healthy appearing and no acute distress Nutritional Appearance: well nourished and obese Orientation/consciousness: patient oriented x3 Resp Effort & Inspection: normal respiratory effort, able to speak in complete sentences, no tracheal deviation and symmetric chest movement Auscultation: clear to auscultation bilaterally Cardio Rate: regular rate GI Inspection: Yes normal to inspection, No distended and Yes obesity Palpation (GI): Soft to palpation, not firm, nontender and No hepatosplenomegaly present Auscultation: normal bowel sounds General: Yes no CVA tenderness Back/Spine/Pelvis Back: no CVA tenderness Skin General skin exam: elasticity normal, turgor normal and dry skin Neuro General: patient oriented x3 Psych Appearance: grossly normal Mental Status: mental status grossly normal Assessment & Plan Assessment & Plan (1) Screen for colon cancer: Code(s): Z12.11 - Encounter for screening for malignant neoplasm of colon Category: Medical Plan Patient denies any GI, cardiac or respiratory symptoms.? Denies any issues with anesthesia in the past.? Denies any history of sleep apnea.? No history infectious diseases in the past or present.? Not on any anticoagulation therapy.? No family or personal history of colon cancer or polyps.? Patient denies melena, hematochezia, unintentional weight loss or ribbon like stools.? Discussed at length the pre-procedure,? prep, diet & medications as well as what to expect prior, during and after the procedure.?? Stressed the importance of good bowel prep.? Recommended the use of Vaseline or Calmoseptine OTC & baby wipes with bowel movements to promote comfort.? ?Patient verbalizes understanding and agrees to plan of care.? She was given the opportunity to ask questions and all questions answered.? We will see her after the procedure.? Orders: Referrals GI Procedure Notification Z12.11 - Encounter for screening for malignant neoplasm of colon Medications: New bisacodyl (Dulcolax (bisacodyl)) take 4 tabs at noon the day before your colonoscopy 20 mg (4 x 5 mg) PO ONCE 4 tabs 0RF constipation 1 day Z12.11 - Encounter for screening for malignant neoplasm of colon polyethylene glycol 3350 (Miralax) As directed by gastroenterology department at [facility] 238 grams PO ONCE 238 grams 0RF Z12.11 - Encounter for screening for malignant neoplasm of colon Coding Level of Care Code New Pt Level 3 (49358) Diagnoses Screen for colon cancer Z12.11 Time Spent (min) 40 Comment 30 minutes spent with patient and additional 10 minutes spent reviewing her records
--- OUTSIDE RECORDS SUMMARY | 2025-05-31 15:13 | XMS_ITS | Clinical Summary ---
Author Organization [facility] Address [address] [place] [id number] Phone Care Team Providers Care Painter Helper Name Role Phone Sarah Sood MD Primary [...] Devices Not on file Insurance [facility] Care Teams Painter Helper Relationship Specialty Start Date End Date Sarah Sood MD [address] [place] [address] PCP - General Internal Medicine 02/08/22 Additional Source Comments The information contained in this document represents components of the legal health record. It is not the complete legal health record.[facility]
== END 2025-05-31 14:23 | disposition home or self-care (01) ==
LOC: HO.HGI 13:42
PROVIDERS: PCP Internal Medicine; Visit Provider Nurse Practitioner Family
DX: Z01.818 Encounter for other preprocedural examination (principal); Z12.11 Encounter for screening for malignant neoplasm of colon
CPT/HCPCS: S0285

== ENCOUNTER 2025-06-12 10:57 | Outpatient (AMB) | payer BC, SELFPAY ==
--- NOTE | 2025-06-12 11:03 | A.OFFVIS_ITS ---
Vital Signs 06/12/25 11:31 Height 5 ft 2 in Weight 165 lb BMI 30.2 Intake Visit Reasons: OV- right plantar warts Intake Note: Darleen is a 44 year old female who presents today as a new patient for an evaluation of her plantar wart of the right foot. Pt states she has two warts on the bottom of her foot and finds it painful to ambulate and when she is resting it feels sore. She states she has tried various at home remedies for the warts and found no relief. Allergies No Known Allergies (No Known Allergies*) Allergy (Verified 06/12/25 11:32) HPI Comments Details: The patient is a 44-year-old female presenting for a follow-up of plantar warts to the right foot. The soreness has been persistent, worse to the plantar wart in the submet 1 area. The patient has been wearing comfortable shoes to alleviate discomfort. Additionally, the patient has a wart on her finger, for which she inquired about treatment options. She denies any adverse effects from previous treatment. She denies any new pedal injuries. Denies any other pedal concerns. She denies any current nausea, vomiting, fever, or chills. [facility]LY [facility] Medical History Pain in right foot Other specified epidermal thickening Plantar wart, right foot Depression BMI 37.0-37.9, adult DJD (degenerative joint disease) Wheezing Surgical History S/P laparoscopic sleeve gastrectomy History of laparoscopic cholecystectomy Hx of vein stripping History of tubal ligation History of 2 sections Family History Mother Heart disease Father Substance use disorder Brother No problems noted. Son No problems noted. Daughter No problems noted. 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 - Musculoskeletal: Denies significant pain, reports tenderness upon palpation. All systems reviewed & are unremarkable except as noted in HPI and below Physical Exam Extrem Other: Right lower extremity focused physical exam: Derm: Plantar warts noted to the plantar aspect of the foot in the area of the 1st metatarsal head and 4/5th metatarsal head measuring approximately 0.3 x 0.3 cm (reduced in size from last visit). Hyperkeratotic lesions noted to the plantar warts. Upon debridement pinpoint bleeding noted to both lesions. Skin supple and turgor intact and within normal limits. No ecchymosis or erythema noted. No clinical signs of infection. No active drainage or purulence noted. Vascular: DP/PT pulses palpable. Capillary refill time less than 3 seconds. Temperature gradient warm to warm. Pedal hair absent. No edema noted. No varicosities noted. Neuro: Protective sensation is grossly intact. MSK: Mild pain on palpation to the hyperkeratotic lesion/plantar warts. No fluctuance noted. Range of motion of the forefoot, hindfoot, ankle within normal limits. Nonantalgic gait noted unassisted. Office Procedures AMB Wart Destruction Podiatry Details of Procedure: Debrided the hyperkeratotic lesions associated with the plantar warts to the plantar aspect of the right foot using a 15. Blade. Upon debridement pinpoint bleeding was noted and at this time salicylic acid 27% solution was applied to the plantar warts. Next a Band-Aid was applied to the area. Provided patient with aftercare instructions. 36295 - Wart Destruction (<15) Additional procedure code (CPT) needed (33569) Office Meds salicylic acid 27.5 % topical film-forming liquid Performing Provider: Deysi Byrne DPM Performing Location: [facility] [place] [facility] Administered by: Deysi Byrne DPM on 06/12/25 11:26 Dose Route Admin Location Dispensed Lot Number Expiration Date [facility] Wet Pour Supervisor 2 appl topical 10 mL [id number] [employer]ACE Assessment & Plan Assessment & Plan (1) Plantar warts: Code(s): B07.0 - Plantar wart Category: Medical (2) Plantar wart, right foot: Code(s): B07.0 - Plantar wart Category: Medical (3) Other specified epidermal thickening: Code(s): L85.8 - Other specified epidermal thickening Category: Medical (4) Pain in right foot: Code(s): M79.671 - Pain in right foot Category: Medical Plan Patient was informed and verbally consented to the use of an ambient scribe for clinic note documentation during this visit. I discussed with the patient the management of her foot soreness and plantar warts, emphasizing the importance of wearing comfortable shoes and keeping the area covered with a bandaid or plantar wart patch. We also talked about the treatment for the wart on her finger, including the use of salicylic acid and keeping it covered with a Band-Aid. A follow-up appointment was scheduled in two weeks to monitor progress and consider alternative treatments if necessary. - Debrided the hyperkeratotic lesion formed onto the plantar warts and applied salicylic acid to the area. Applied a bandaid to the affected areas which patient is to leave on for 24 hours. - Prescribed Salicylic acid 17% to be applied to the plantar warts and other affected areas after 24 hours of treatment. Advised to keep the areas clean and dry with bandaid. - Continue wearing comfortable shoes to manage foot soreness. - Advised patient to avoid barefoot walking and to keep shoes and socks clean and dry. RTC in 2 weeks for re-evaluation. Orders: Orders AMB Wart Destruction Podiatry Today B07.0 - Plantar wart, L85.8 - Other specified epidermal thickening Medications: New salicylic acid 17% 1 appl topical DAILY 9 mL 0RF Plantar Wart B07.0 - Plantar wart, L85.8 - Other specified epidermal thickening Coding Level of Care Code Est Pt Level 4 (12358) Diagnoses Plantar warts B07.0 Plantar wart, right foot B07.0 Other specified epidermal thickening L85.8 Pain in right foot M79.671 CPT Codes Destruction of Wart - CPT: 70708 - Wart Destruction (<15) ([id number]) Destruction of Wart - All charges added?: Additional procedure code (CPT) needed ([id number]) Time Spent (min) 50
[2025-06-12 11:31] VITALS: BMI 30.2
--- OUTSIDE RECORDS SUMMARY | 2025-06-12 13:07 | XMS_ITS | Clinical Summary ---
Author Organization [facility] Address [address] [place] [phone] Phone Care Team Providers Care Tool Inspector Name Role Phone Sarah Sood MD Primary [...] topic Medical Devices Not on file Insurance [facility] Care Teams Tool Inspector Relationship Specialty Start Date End Date Sarah Sood MD [address] [place] [address] PCP - General Internal Medicine 02/08/22 Additional Source Comments The information contained in this document represents components of the legal health record. It is not the complete legal health record.[facility]
== END 2025-06-12 11:18 | disposition home or self-care (01) ==
LOC: HO.HPODS 10:58
PROVIDERS: PCP Internal Medicine; Visit Provider Student in an Organized Health Care Education/Training Program
DX: B07.0 Plantar wart (principal); L85.8 Other specified epidermal thickening; M79.671 Pain in right foot
CPT/HCPCS: 17110; 99214

== ENCOUNTER → 2025-06-12 10:57 | Outpatient (BNVA) | payer BC, SELFPAY | PROVIDERS: PCP Internal Medicine; Visit Provider Student in an Organized Health Care Education/Training Program | DX: B07.0 Plantar wart (principal) | CPT/HCPCS: 17110 ==

== ENCOUNTER 2025-06-26 13:12 | Outpatient (AMB) | payer BC, SELFPAY ==
--- NOTE | 2025-06-26 13:22 | A.OFFVIS_ITS ---
Vital Signs 06/26/25 14:12 Height 5 ft 2 in Weight 165 lb BMI 30.2 Intake Visit Reasons: plantar warts Intake Note: Darleen is a 44 year old female who presents to the office today for a follow up for plantar warts. At last visit warts of her right foot were debrided and pt was instructed to use to Salicylic acid prescribed as well. Pt states her plantar wart has improved since the last visit. Allergies No Known Allergies (No Known Allergies*) Allergy (Verified 06/26/25 14:13) Medication List - Last Reconciled 06/27/25 by Deysi Byrne DPM bisacodyl (Dulcolax (bisacodyl)) 20 mg (4 x 5 mg) PO ONCE 1 day blood pressure monitor As directed bupropion HCl XL 150 mg PO QAM 90 days jjodrjlnxp-brhqfym-vrisyhmx 50-325-40 mg 1 cap PO Q6H PRN cetirizine (Zyrtec) 10 mg PO DAILY PRN fluoxetine 10 mg PO DAILY 90 days melatonin 10 mg PO BEDTIME PRN polyethylene glycol 3350 (Miralax) 238 grams PO ONCE propranolol 10 mg PO BID 30 days salicylic acid 17% 1 appl topical DAILY sumatriptan succinate 50 mg PO .QD PRN HPI Comments Details: The patient is a 44-year-old female presenting for follow-up of plantar warts to the right foot x2. The foot tenderness has been improving, although it remains tender without significant pain. The patient reports that scrubbing the area causes slight bleeding in the area of the plantar warts. The callus on the foot is noted to be gradually falling off, indicating a positive response to treatment. The patient has been applying patches at home, which has contributed to the reduction in size of the callus. She denies any adverse effects from previous treatment. She denies any new pedal injuries. Denies any other pedal concerns. She denies any current nausea, vomiting, fever, or chills. [facility] Medical History Pain in right foot Other specified epidermal thickening Plantar wart, right foot Depression BMI 37.0-37.9, adult DJD (degenerative joint disease) Wheezing Surgical History S/P laparoscopic sleeve gastrectomy History of laparoscopic cholecystectomy Hx of vein stripping History of tubal ligation History of 2 sections Family History Mother Heart disease Father Substance use disorder Brother No problems noted. Son No problems noted. Daughter No problems noted. 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 - Musculoskeletal: Denies significant pain, reports tenderness upon palpation. All systems reviewed & are unremarkable except as noted in HPI and below Physical Exam Vital Signs: BMI result Body Mass Index 30.2 Extrem Other: Right lower extremity focused physical exam: Derm: Plantar warts noted to the plantar aspect of the foot in the area of the 1st metatarsal head and 4/5th metatarsal head measuring approximately 0.2 x 0.2 cm (reduced in size from last visit). Hyperkeratotic lesions noted to the plantar warts. Upon debridement pinpoint bleeding noted to both lesions, less pinpoint bleeding noted to the plantar wart in the area of sub metatarsal 4 and 5. Skin supple and turgor intact and within normal limits. No ecchymosis or erythema noted. No clinical signs of infection. No active drainage or purulence noted. Vascular: DP/PT pulses palpable. Capillary refill time less than 3 seconds. Temperature gradient warm to warm. Pedal hair absent. No edema noted. No varicosities noted. Neuro: Protective sensation is grossly intact. MSK: Minimal pain on palpation to the hyperkeratotic lesion/plantar warts. No fluctuance noted. Range of motion of the forefoot, hindfoot, ankle within normal limits. Nonantalgic gait noted unassisted. Office Procedures AMB Wart Destruction Podiatry Details of Procedure: Debrided the hyperkeratotic lesions associated with the plantar warts to the plantar aspect of the right foot using a 15. Blade. Upon debridement pinpoint bleeding was noted and at this time Cantharidin 0.7% solution was applied to the plantar warts. Next a Band-Aid was applied to the area. Provided patient with aftercare instructions. 90133 - Wart Destruction (<15) Additional procedure code (CPT) needed (27249) Office Meds cantharidin 0.7 % topical solution with applicator Performing Provider: Deysi Byrne DPM Performing Location: [place] [facility] Administered by: Deysi Byrne DPM on 06/27/25 09:52 Dose Route Admin Location Dispensed Lot Number Expiration Date [facility][NOTE 3] Medical Resident 1 appl topical 1 appl [id number] [employer] Assessment & Plan Assessment & Plan (1) Plantar warts: Code(s): B07.0 - Plantar wart Category: Medical (2) Plantar wart, right foot: Code(s): B07.0 - Plantar wart Category: Medical (3) Other specified epidermal thickening: Code(s): L85.8 - Other specified epidermal thickening Category: Medical (4) Pain in right foot: Code(s): M79.671 - Pain in right foot Category: Medical Plan Patient was informed and verbally consented to the use of an ambient scribe for clinic note documentation during this visit. I discussed with the patient the current management of the plantar worse, em phasizing the importance of continuing the application of vwit-pul-bfgpmrq patches to the area near the 1st metatarsal to continue treatment. No atar-rkn-wwkxucg patches needed on the plantar wart noted around submetatarsal 4 and 5. I advised her to monitor for any pain or bleeding and to report these symptoms if they occur. A follow-up appointment was scheduled in two weeks to evaluate the progress of the treatment. - Debrided hyperkeratotic lesions and applied cantharidin solution to the plantar warts with a Band-Aid which is to be left on for the 1st 24 hours. - Continuing the application of agsf-ceb-kjyzjac patches to the area near the 1st metatarsal to continue treatment. No zuue-ama-yqcifyb patches needed on the plantar wart noted around submetatarsal 4 and 5. - Monitor for any signs of pain or bleeding, and report if they occur. - Continue wearing comfortable shoes to manage foot soreness. - Advised patient to avoid barefoot walking and to keep shoes and socks clean and dry. RTC in 2 weeks for re-evaluation. Orders: Orders AMB Wart Destruction Podiatry 06/26/25 B07.0 - Plantar wart, L85.8 - Other specified epidermal thickening, M79.671 - Pain in right foot Coding Level of Care Code Est Pt Level 4 (24383) Diagnoses Plantar warts B07.0 Plantar wart, right foot B07.0 Other specified epidermal thickening L85.8 Pain in right foot M79.671 CPT Codes Destruction of Wart - CPT: 28338 - Wart Destruction (<15) ([id number]) Destruction of Wart - All charges added?: Additional procedure code (CPT) needed ([id number]) Time Spent (min) 45 Comment 10 mins for procedure
[2025-06-26 14:12] VITALS: BMI 30.2
== END 2025-06-26 13:35 | disposition home or self-care (01) ==
LOC: HO.HPODS 13:13
PROVIDERS: PCP Internal Medicine; Visit Provider Student in an Organized Health Care Education/Training Program
DX: M79.671 Pain in right foot (principal); B07.0 Plantar wart; L85.8 Other specified epidermal thickening
CPT/HCPCS: 17110; 99214

== ENCOUNTER → 2025-06-26 13:12 | Outpatient (BNVA) | payer BC, SELFPAY | PROVIDERS: PCP Internal Medicine; Visit Provider Student in an Organized Health Care Education/Training Program | DX: B07.0 Plantar wart (principal); L85.8 Other specified epidermal thickening; M79.671 Pain in right foot | CPT/HCPCS: 11305; 17110; J7354 ==

== ENCOUNTER 2025-07-10 08:48 | Outpatient (AMB) | payer BC, SELFPAY ==
[2025-07-10 08:54] VITALS: BMI 30.2
--- NOTE | 2025-07-10 08:54 | MHC.OFFVIS ---
Vital Signs 07/10/25 08:54 Height 5 ft 2 in Weight 165 lb BMI 30.2 Intake Visit Reasons: f/u plantar warts Intake Note: Darleen is a 44 year old female who presents today for a followup of plantar warts. At her last visit patient was advised to Continuing the application of nwcv-etn-nloxxjr patches to the area near the 1st metatarsal to continue treatment, to monitor for any signs of pain or bleeding, and report if they occur, and to also continue wearing comfortable shoes to manage foot soreness. Patient reports she is doing well with no further concerns at this time. Allergies No Known Allergies (No Known Allergies*) Allergy (Verified 06/26/25 14:13) HPI Comments Details: The patient is a 44-year-old female presenting for follow-up of plantar warts to the right foot x2. The foot tenderness has been improving, but she states initially after the cantharidin treatment she noticed some blistering and pain for a few days. She denies any purulence from the site. The patient has been applying faym-ika-amknmju patches at home to the submet 1 area as instructed. She denies any new pedal injuries. Denies any other pedal concerns. She denies any current nausea, vomiting, fever, or chills. COUNTS INCLUDE 234 BEDS AT THE [facility] Medical History Pain in right foot Other specified epidermal thickening Plantar wart, right foot Depression BMI 37.0-37.9, adult DJD (degenerative joint disease) Wheezing Surgical History S/P laparoscopic sleeve gastrectomy History of laparoscopic cholecystectomy Hx of vein stripping History of tubal ligation History of 2 sections Family History Mother Heart disease Father Substance use disorder Brother No problems noted. Son No problems noted. Daughter No problems noted. 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 - Musculoskeletal: Denies significant pain, reports no tenderness upon palpation. All systems reviewed & are unremarkable except as noted in HPI and below Physical Exam Vital Signs: BMI result Body Mass Index 30.2 Extrem Other: Right lower extremity focused physical exam: Derm: Areas of Plantar warts noted to the plantar aspect of the foot in the area of the 1st metatarsal head and 4/5th metatarsal head. Plantar warts noted to be healed upon debridement of hyperkeratotic lesions. Upon debridement no pinpoint bleeding noted to both lesions. Skin supple and turgor intact and within normal limits. No ecchymosis or erythema noted. No clinical signs of infection. No active drainage or purulence noted. Vascular: DP/PT pulses palpable. Capillary refill time less than 3 seconds. Temperature gradient warm to warm. Pedal hair absent. No edema noted. No varicosities noted. Neuro: Protective sensation is grossly intact. MSK: No pain on palpation to the hyperkeratotic lesion/plantar warts. No fluctuance noted. Range of motion of the forefoot, hindfoot, ankle within normal limits. Nonantalgic gait noted unassisted. Office Procedures AMB Wart Destruction Podiatry Details of Procedure: Debrided the hyperkeratotic lesions associated with the plantar warts to the plantar aspect of the right foot using a 15. Blade. Upon debridement no pinpoint bleeding was noted and at this time Cantharidin 0.7% solution was not deemed necessary due to healed nature of warts. Additional procedure code (CPT) needed (43365) Assessment & Plan Assessment & Plan (1) Plantar warts: Code(s): B07.0 - Plantar wart Category: Medical (2) Plantar wart, right foot: Code(s): B07.0 - Plantar wart Category: Medical (3) Other specified epidermal thickening: Code(s): L85.8 - Other specified epidermal thickening Category: Medical (4) Pain in right foot: Code(s): M79.671 - Pain in right foot Category: Medical Plan Patient was informed and verbally consented to the use of an ambient scribe for clinic note documentation during this visit. I discussed with the patient that the plantar wart on her foot are heel and do not require further treatment unless irritation occurs. I recommended soaking the foot in Epsom salt and warm water if irritation develops and advised letting the skin air dry afterward. I also mentioned that follow-up is only necessary if symptoms persist or worsen. - Debrided hyperkeratotic lesions and plantar warts were noted to be resolved. - No further treatment required for the wart unless irritation occurs. - Recommended soaking the foot in Epsom salt and warm water if irritation develops. - Patient no longer needs to apply omyv-qtv-pnuliom patches at home. - Advised patient to avoid barefoot walking and to keep shoes and socks clean and dry. - Wear supportive shoe gear. RTC PRN. Orders: Orders AMB Wart Destruction Podiatry Today B07.0 - Plantar wart, L85.8 - Other specified epidermal thickening, M79.671 - Pain in right foot Coding Level of Care Code Est Pt Level 3 (88702) Diagnoses Plantar warts B07.0 Plantar wart, right foot B07.0 Other specified epidermal thickening L85.8 Pain in right foot M79.671 CPT Codes Destruction of Wart - All charges added?: Additional procedure code (CPT) needed ([id number]) Time Spent (min) 25 Comment 5 mins for procedure
== END 2025-07-10 09:06 | disposition home or self-care (01) ==
LOC: HO.HPODS 08:49
PROVIDERS: PCP Internal Medicine; Visit Provider Student in an Organized Health Care Education/Training Program
DX: B07.0 Plantar wart (principal); L85.8 Other specified epidermal thickening; M79.671 Pain in right foot
CPT/HCPCS: 11305; 99213

== ENCOUNTER → 2025-07-10 08:48 | Outpatient (BNVA) | payer BC, SELFPAY | PROVIDERS: PCP Internal Medicine; Visit Provider Student in an Organized Health Care Education/Training Program | DX: B07.0 Plantar wart (principal); L85.8 Other specified epidermal thickening; M79.671 Pain in right foot; E66.9 Obesity, unspecified; Z68.37 Body mass index [BMI] 37.0-37.9, adult | CPT/HCPCS: 11305 ==

== ENCOUNTER 2025-08-20 11:34 | Day surgery (SDC) | payer BC, SELFPAY ==
--- OUTSIDE RECORDS SUMMARY | 2025-08-14 18:21 | XMS_ITS | Clinical Summary ---
Author Organization [facility] Address [address] [place] [id number] Phone Care Team Providers Care Outpatient Coder Name Role Phone Sarah Sood MD Primary [...] topic Medical Devices Not on file Insurance [facility] Address: [address] [address] Care Teams Outpatient Coder Relationship Specialty Start Date End Date Sarah Sood MD [address] [place] [address] PCP - General Internal Medicine 02/08/22 Additional Source Comments The information contained in this document represents components of the legal health record. It is not the complete legal health record.[facility]
--- NOTE | 2025-08-16 10:13 | P.CONAN_ITS ---
Documented by User: Ciera Prado NP 08/16/25 10:14 HPI - Anesthesia Eval Consult details Narrative: 44yo F for Colonoscopy PMFSH Active Problems Active Problems: All Active Problems Pain in right foot (Acute) Other specified epidermal thickening (Acute) Plantar wart, right foot (Acute) Plantar warts (Acute) Family history of colon cancer (Acute) Screen for colon cancer (Acute) Family history of skin cancer (Acute) Overweight (BMI 25.0-29.9) (Acute) Migraine (Acute) S/P laparoscopic sleeve gastrectomy (Acute) Intra-abdominal adhesions (Acute) Liver fibrosis (Acute) Depression (Acute) Physical exam (Acute) Pre-op evaluation (Acute) History of laparoscopic cholecystectomy (Acute) Fatigue (Acute) Morbid obesity (Acute) Mild recurrent major depression (Acute) Hypovitaminosis D (Acute) Vitamin A deficiency (Acute) Other specified eating disorder (Acute) Traumatic hematoma of right upper arm (Acute) Obesity (Acute) BMI 39.0-39.9,adult (Acute) Chronic calculous cholecystitis (Acute) PONV (postoperative nausea and vomiting) (Acute) Past Medical History Medical History (Updated 08/16/25 @ 14:34 by Leslie Savage RN) Migraines PONV (postoperative nausea and vomiting) Pain in right foot Other specified epidermal thickening Plantar wart, right foot Depression DJD (degenerative joint disease) Family History Family History Mother Heart disease Father Substance use disorder Brother No problems noted. Son No problems noted. Daughter No problems noted. Maternal Grandmother Melanoma Family/Other Colon cancer Family history of problems with anesthesia: No Surgical History Surgical History S/P laparoscopic sleeve gastrectomy History of laparoscopic cholecystectomy Hx of vein stripping History of tubal ligation History of 2 sections History of Problems with Anesthesia: Yes (ponv ) Social History Social History Household Members: Family Housing: House Are you a primary pediatric acute care unit nurse to a significant other at home: No Do you presently have visiting nurse or other home services: No Alcohol intake: former Patient Tobacco Use Status: Never used Tobacco e-Cigarette/Vaping Use: Never Used Second Hand Smoke Exposure: No service: No Current occupational status: employed 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 Current occupational exposures/hazards: No Cognitive needs: No Hearing needs: No Vision needs: No Meds Allergies Allergy/AdvReac Type Severity Reaction Status Date / Time No Known Allergies (No Known Allergy Verified 06/26/25 14:13 Allergies*) Home Medications ?Medication ?Instructions ?Recorded ?Confirmed ?Last Taken ?Type cetirizine 10 mg capsule (Zyrtec) 10 mg PO DAILY PRN A llergy Symptoms 11/24/22 06/27/25 Unknown History melatonin 10 mg capsule 10 mg PO BEDTIME PRN Insomni a 11/24/22 06/27/25 Unknown History Assessment and Plan Assessment Anesthesia Assessment: Chart Reviewed Final Anesthetic Review Family History of Problems with Anesthesia: No History of Problems with Anesthesia: Yes (ponv ) Documented by User: Adam Salgado MD 08/20/25 14:09 [facility] Past Medical History Medical History (Updated 08/16/25 @ 14:34 by Leslie Savage RN) Migraines PONV (postoperative nausea and vomiting) Pain in right foot Other specified epidermal thickening Plantar wart, right foot Depression DJD (degenerative joint disease) Patient : No Family History Family History Mother Heart disease Father Substance use disorder Brother No problems noted. Son No problems noted. Daughter No problems noted. Maternal Grandmother Melanoma Family/Other Colon cancer Surgical History Surgical History S/P laparoscopic sleeve gastrectomy History of laparoscopic cholecystectomy Hx of vein stripping History of tubal ligation History of 2 sections Social History Social History Household Members: Family Housing: House Are you a primary pediatric acute care unit nurse to a significant other at home: No Do you presently have visiting nurse or other home services: No Alcohol intake: former Patient Tobacco Use Status: Never used Tobacco e-Cigarette/Vaping Use: Never Used Second Hand Smoke Exposure: No service: No Current occupational status: employed 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 Current occupational exposures/hazards: No Cognitive needs: No Hearing needs: No Vision needs: No Meds Allergies Allergy/AdvReac Type Severity Reaction Status Date / Time No Known Allergies (No Known Allergy Verified 06/26/25 14:13 Allergies*) Home Medications ?Medication ?Instructions ?Recorded ?Confirmed ?Last Taken ?Type cetirizine 10 mg capsule (Zyrtec) 10 mg PO DAILY PRN A llergy Symptoms 11/24/22 06/27/25 Unknown History melatonin 10 mg capsule 10 mg PO BEDTIME PRN Insomni a 11/24/22 06/27/25 Unknown History Exam Airway Mallampati Class: II TM Dist: <=3cm Neck ROM: Full Loose/Missing/Broken Teeth: No Heart: ok Lungs: ok Assessment and Plan Assessment Anesthesia Assessment: Anesthesia Plan Discussed Final Anesthetic Review NPO: Yes ASA Class: II Final Preanesthetic Review: No Changes in Pt Med Stat, Meds/Allgs Chart Reviewed, Consent Obtained/Reviewed and Anes Risks/Benef Reviewed Patient Risk: Low Procedure Risk: Low Anesthetic Plan Anesthetic Plan: MAC: and Agree w/ Assess. and Plan Disposition: Standard PACU
[2025-08-16 14:34] VITALS: BMI 30.2
[2025-08-20 11:45] VITALS: BMI 29.8
[2025-08-20] MEDS: Lactated Ringers 1,000 ML 100 ML IVCONT (11:59)
[2025-08-20 12:10] LABS: Glucose, Whole Blood 91 mg/dL (60-115)
--- NOTE | 2025-08-20 13:00 | MHC.SHP ---
Pre-Procedural Eval Section A - 24 Hr Update-Section A only Date of Service: 08/20/25 The patient is an INPATIENT: No The patient has been examined within 24 hours of the surgical procedure. The History & Physical has been completed within 30 days and I have reviewed it.: No Section B - Complete if H&P > 30 days Chief Complaint: Colon cancer screening, family history of colon ca Relevant Family History (Specify if Yes): Yes Relevant Social History: None Present Medications: see Short Stay Collaborative assessment Medical History: Significant History (Plantar wart, right foot Depression BMI 37.0-37.9, adult DJD (degenerative joint disease) Wheezing) History of Previous Operations: Relevant previous surgery/procedure and date(s) (S/P laparoscopic sleeve gastrectomy History of laparoscopic cholecystectomy Hx of vein stripping History of tubal ligation History of 2 sections) Allergies: Allergies Allergy/AdvReac Type Severity Reaction Status Date / Time No Known Allergies (No Known Allergy Verified 06/26/25 14:13 Allergies*) Review of Systems Sugical H&P ROS: Negative: Constitution, Cardiovascular, Respiratory and Gastrointestinal Exam Surgical H&P Exam: Normal: Heart, Normal: Lungs, Normal: Extremities and Normal: Abdomen Plan Diagnosis/Plan: Unchanged I have reviewed the history and physical and performed a pertinent physical examination on my patient. No changes have occurred unless specified. Time Spent With Patient Time: Total time managing care of this patient today ____ minutes.
--- NOTE | 2025-08-20 14:38 | HO.OPN-COLON ---
Colonoscopy Operative Note Operative Note Date of Service: 08/20/25 Narrative: COLONOSCOPY TILL CECUM Pre-op diagnosis: Colon cancer screening (first colon), family history of colon cancer (Maternal GM in her 50's). Post-op diagnosis:? hemorrhoids Endoscopist:? Dylon Darnell MD Anesthesia:?MAC Consent: Indications for the procedure and potential complications of bleeding, perforation, reaction to medications and missed diagnosis were discussed with the patient and informed consent was obtained. Instrument: Olympus PCF H 190 L variable stiffness pediatric colonoscope Monitoring: Vital signs and clinical assessment, intermittent blood pressure monitoring, continuous EKG monitoring, Pulse oximetry and Carbon Dioxide monitoring were done throughout the procedure. Please see anesthesia flowsheet. Colon withdrawl time was 21 minutes. Procedure: The patient was placed in the left lateral decubitis position and pre-procedure medications were administered. After a digital rectal examination of the ano-rectum, the video colonoscope was inserted into the rectum and advanced through the colon to the cecum. The colonoscope was slowly withdrawn in a retrograde panoramic fashion and the colon mucosa was carefully examined including a retroflexed view of the rectum. Findings and interventions are described below. Procedure Difficulty: Colon was long and tortuous and there was some loop formation. Findings: Terminal Ileum: Not evaluated Cecum: Normal Ascending Colon: Normal Transverse Colon: Normal Descending Colon: Normal Sigmoid Colon: Normal Rectum: Normal Ano-rectum: Moderate internal hemorrhoids Colon preparation: Good after copious irrigation. [place] Bowel Preparation Scale Right colon; 2 Transverse colon: 2 Left colon; 2 (0 = Unprepared colon segment with mucosa not seen due to solid stool that cannot be cleared. 1 = Portion of mucosa of the colon segment seen, but other areas of the colon segment not well seen due to staining, residual stool and/or opaque liquid. 2 = Minor amount of residual staining, small fragments of stool and/or opaque liquid, but mucosa of colon segment seen well. 3 = Entire mucosa of colon segment seen well with no residual staining, small fragments of stool or opaque liquid) Impression and Post Procedure Diagnosis: Colonoscopy Findings: No polyps were detected Moderate hemorrhoids on retroflexed exam. Plan: Repeat Colonoscopy in 5 years due to positive family history of colon cancer. (Miralax split prep and dulcolax 10 mg daily x 5 days for next colonoscopy prep) Above findings were reviewed with the patient and relevant handouts were given and the discharge area. Patient was placed on the colonoscopy recall list for repeat colonoscopy in 5 years.
[2025-08-20 14:40] VITALS: BP 88/51; PULSE 82; RESP 18; TEMP 36.4; O2SAT 98
[2025-08-20 14:55] VITALS: BP 104/60; PULSE 88; RESP 18; TEMP 36.4; O2SAT 100
== END 2025-08-20 15:10 | disposition home or self-care (01) ==
PROVIDERS: PCP Internal Medicine; Visit Provider Internal Medicine Gastroenterology
PROC: 0DJD8ZZ Inspection of Lower Intestinal Tract, Via Natural or Artificial Opening Endoscopic (ICD-10-PCS; CPT 45378; principal; 2025-08-20 13:00)
DX: Z12.11 Encounter for screening for malignant neoplasm of colon (principal); K64.8 Other hemorrhoids
CPT/HCPCS: 45378; 82947; J0131; J2003; J2704

== ENCOUNTER → 2025-08-20 11:34 | Outpatient (BNV) | payer BC, SELFPAY | PROVIDERS: PCP Internal Medicine; Visit Provider Internal Medicine Gastroenterology | DX: Z12.11 Encounter for screening for malignant neoplasm of colon (principal); Z80.0 Family history of malignant neoplasm of digestive organs; K64.8 Other hemorrhoids | CPT/HCPCS: 45378 ==